=== PATIENT | male | born 1960 | race Caucasian/White ===

== ENCOUNTER 2019-12-28 10:32 | Emergency (ER) | payer MEDICARE, MEDICAID, SELFPAY ==
[2019-12-28 10:50] VITALS: BP 151/82; PULSE 92; RESP 20; TEMP 37.7; O2SAT 98
[2019-12-28 11:23] LABS: Hematocrit 50.2 % (40.0-54.0); Hemoglobin 16.9 g/dL (14.0-18.0); Mean Corpuscular HGB Conc 33.7 g/dL (32.0-36.0); Mean Corpuscular Hemoglobin 28.3 pg (27.0-31.0); Mean Corpuscular Volume 83.9 fL (78.0-102.0); Mean Platelet Volume 12.2 fl (8.7-11.0); Platelet Count Result 206 K/mm3 (150-420); Red Blood Count 5.98 M/mm3 (4.70-6.10); Red Cell Distribution Width 12.7 % (11.6-14.4); White Blood Count 15.3 K/mm3 (4.8-10.8)
--- NOTE | 2019-12-28 11:29 | ED.SKABFB ---
HPI - Skin/Abscess/Foreign Bdy General Chief complaint: Skin/Abscess/Foreign Body Stated complaint: swollen spot on L thigh, possible infection Source: patient Mode of arrival: ambulatory Limitations: no limitations History of Present Illness HPI narrative: this is a 59-year-old male presents with some lesion on the left lateral upper thigh area with an area of erythema with a central lesion the area is warm tender to touch it is swollen, patient has been afebrile started couple of days ago and has gotten worse unsure of mechanism but may be related to a scratch or insect bite. Currently no chest pain no shortness of breath no abdominal pain no dysuria. complaint: abscess/boil Onset (ago): day(s) Location: LLE Severity: moderate Severity scale (1-10): 4 Quality: aching Pain Consistency: constant Relieving factors: none Exacerbating factors: none Context: none Associated symptoms: denies other symptoms Related Data Allergies Allergy/AdvReac Type Severity Reaction Status Date / Time No Known Allergies Allergy Verified 12/28/19 11:29 Review of Systems Review of Systems: All systems reviewed & are unremarkable except as noted in HPI and below PMFSH Past Medical History Medical History Patient denies medical problems Exam Const: General: no acute distress and alert Orientation/consciousness: patient oriented x3 HENMT: Head: normal to inspection Eyes: Conjunctivae: conjunctivae normal Pupils: Equal, round and reactive pupils present Neck: Neck: normal visual inspection Chest: Chest palpation & inspection: normal inspection of the chest Resp: Effort & Inspection: normal respiratory effort Cardio: Rate: regular rate Rhythm: regular rhythm GI: Auscultation: normal bowel sounds Skin: General skin exam: normal color Wounds: no wounds Other: has some an area left lateral thigh approximately 5cm in diameter that is warm and tender to touch mildly swollen with a central lesion with currently no discharge Neuro: General: patient oriented x3, moves all extremities, no meningeal signs and no focal motor deficits Extrem: General: normal to inspection Psych: Mental Status: mental status grossly normal Course Course Emergency Course: patient started on IV ceftriaxone and did inform patient of his white count elevated and that we obtain blood cultures. Discussed with the patient's blood sugars being elevated patient is currently a diabetic but was reluctant to start his metformin, reiterated that it is important that he control his blood sugars and and he said that when he goes home whole restart his metformin. MDM - Skin/Abscess/Foreign Bdy Lab Data Result diagrams: 12/28/19 11:20 12/28/19 11:20 Labs: Lab Results 12/28/19 12/28/19 Range/Units 11:20 11:20 WBC 15.3 H (4.8-10.8) K/mm3 RBC 5.98 (4.70-6.10) M/mm3 Hgb 16.9 (14.0-18.0) g/dL Hct 50.2 (40.0-54.0) % MCV 83.9 (78.0-102.0) fL MCH 28.3 (27.0-31.0) pg MCHC 33.7 (32.0-36.0) g/dL RDW 12.7 (11.6-14.4) % Plt Count 206 (150-420) K/mm3 MPV 12.2 H (8.7-11.0) fl Sodium Pending Potassium Pending Chloride Pending Carbon Dioxide Pending Anion Gap Pending BUN Pending Creatinine Pending Estim Creat Clear Calc Pending Estimated GFR Pending Glucose Pending Calculated Osmolality Pending Calcium Pending Total Bilirubin Pending AST Pending ALT Pending Alkaline Phosphatase Pending Total Protein Pending Albumin Pending Critical Care Time Critical Care Time Critical Care Time: No Discharge Plan Discharge Clinical Impression: Cellulitis Qualifiers: Site of cellulitis: extremity Site of cellulitis of extremity: lower extremity Laterality: left Qualified Code(s): L03.116 - Cellulitis of left lower limb Abscess of skin or subcutaneous tissue Qualifier
[2019-12-28 11:39] LABS: Alanine Aminotransferase 16 U/L (16-63); Albumin Level 3.7 g/dL (3.4-5.0); Alkaline Phosphatase 74 U/L (46-116); Anion Gap 12 mmol/L (8-16); Aspartate Amino Transferase 11 U/L (15-37); Bilirubin,Total 1.1 mg/dL (0.00-1.00); Blood Urea Nitrogen 14 mg/dL (7-18); Calcium 9.7 mg/dL (8.5-10.1); Carbon Dioxide 23 mmol/L (21-32); Chloride 100 mmol/L (98-108); Estimated Glomerular Filt Rate > 60; Glucose 316 mg/dL (70-99); Osmolality Calculated 292 mOsm/kg (285-295); Sodium 135 mmol/L (136-145)
[2019-12-28 12:05] VITALS: BP 158/87; PULSE 87; RESP 20; TEMP 37.7; O2SAT 97
[2019-12-28] MEDS: TETANUS,DIPHTHERIA,AC PERTUSSIS ADULT 0.5 ML (ADACEL) IM (12:07)
== END 2019-12-28 12:09 | disposition home or self-care (01) ==
PROVIDERS: Emergency Provider Emergency Medicine; PCP Family Medicine
DX: L03.116 Cellulitis of left lower limb (principal); L02.416 Cutaneous abscess of left lower limb
CPT/HCPCS: 36415; 80053; 85027; 87040; 90471; 90715; 96365; 99283; 99284; J0696

== ENCOUNTER 2024-01-29 07:00 | Outpatient (CLI) | payer OTHER, SELFPAY ==
--- NOTE | ~2024-01-29 | NM_ITS ---
EXAMINATION: NM hepatobiliary w pharm DATE: 01/29/2024 09:51 INDICATION: Right upper quadrant abdominal pain. COMPARISON: None. TECHNIQUE: 6.0 mCi Tc-99m mebrofenin (Choletec) was administered intravenously. Scintigraphic images of the abdomen were obtained for one hour. Then, 2.0 mcg sincalide (Kinevac) IV was administered, an d imaging was continued for 30 minutes. FINDINGS: There is normal clearance of radiotracer from the blood pool. There is homogeneous tracer u ptake by the liver. Activity progresses to the bowel and gallbladder. Gallbladder ejection fraction (GBEF) was 33%. Note that most patients with gallbladder dysfunction have GBEF < 35%, which overlaps with the broad normal range of 10-90%. IMPRESSION: 1. Gallbladder ejection fraction in the lower range of normal. Note that this value overlaps with th e range of values that may be seen with gallbladder dysfunction and/or chronic cholecystitis if there is appropriate clinical correlation. Reviewed, dictated and finalized at location A. IMPRESSION: 1. Gallbladder ejection fraction in the lower range of normal. Note that this value overlaps with the range of values that may be seen with gallbladder dysfu nction and/or chronic cholecystitis if there is appropriate clinical correlatio nAisha
== END 2024-01-29 07:01 | disposition home or self-care (01) ==
LOC: CHSIMG 07:02
PROVIDERS: PCP Family Medicine; Visit Provider Family Medicine
DX: R10.11 Right upper quadrant pain (principal)
CPT/HCPCS: 78227; A9537; J2805

== ENCOUNTER 2024-06-20 08:09 | Outpatient (CLI) | payer OTHER, SELFPAY ==
--- NOTE | ~2024-06-20 | MR_ITS ---
EXAMINATION: MRA abdomen wo/w con DATE: 06/20/2024 09:04 INDICATION: Abdominal pain, weight loss and pain with eating TECHNIQUE: Magnetic resonance angiography (MRA) of the abdomen was performed without and with 20 mL M ultihance intravenous contrast. Sequences included axial and coronal 2-D FIESTA, 3-D phase contrast a t the level renal arteries and pre contrast and two sequential coronal postcontrast FSPGR from which rotating maximum intensity projection reconstructions were performed. COMPARISON: None. FINDINGS: Heart size normal. No pericardial or pleural effusion. Status post cholecystectomy with focal metalli c artifact associated with cholecystectomy clips at the gallbladder fossa. Liver, pancreas, bilateral adrenal glands and kidneys are normal. Multiple low signal intensity calcified granulomata in the sp david. No pathologically enlarged abdominal lymphadenopathy. Mild lumbar spondylosis. No abnormally en hancing bone lesions. Abdominal aorta is normal in caliber. There is some atherosclerotic plaque without hemodynamically si gnificant stenosis along the infrarenal aorta. No aneurysm, dissection or hemodynamically significant stenosis. The bilateral common iliac arteries are normal in caliber but with irregular margins sugge sting combination of atherosclerotic plaque with possible ulcerated plaque or penetrating atheroscler osis ulcers along the right common iliac artery. There is a mild <50% stenosis at the proximal celiac axis. No significant stenosis along the superior mesenteric artery. The inferior mesenteric artery i s not identified and is likely occluded. There are paired left and right renal arteries with common o rigin of the right renal arteries. IMPRESSION: 1. 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 2. Ulcerated plaque versus penetrating atherosclerotic ulcers along the normal caliber right common i liac artery. Reviewed, dictated and finalized at location A. IT REPRESENTATIVE IMPRESSION: 1. 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 2. Ulcerated plaque versus penetrating atherosclerotic ulcers along the normal caliber right common iliac artery.
--- OUTSIDE RECORDS SUMMARY | 2024-06-20 08:15 | XMS_ITS ---
Author Organization Unknown Address [address] [place] [phone] Phone Care Team Providers Care General Farmer Name Role Phone ALEX WHITNEY B Attending Unavailable LELIA Lacy Primary Unavailable Immunization Immunization Date Status Additional Notes Code Code System Tdap 12/28/2019 Completed 115 CVX Results BUN/CREAT - Collect Date/Demetrio e: 09/08/2023 09:48 [facility] ID: [id number] [address] [place] [address], [phone] LOINC: 3097-3 Test Value Unit Reference Range Code Code System Flag BUN 12 mg/dL L=7 H=20 3094-0 LOINC CREATININE 0.90 mg/dL L=0.66 H=1.25 2160-0 LOINC AGE 63 97340-4 LOINC eGFR NON-AFR 90 ml/min eGFR AFR AMER 109 ml/min CT ABD/PEL W/ CONTRAST - Com pleted: 09/08/2023 11:26 LOINC: 23400-8 EXAM DESCRIPTION: CT CHEST/LUNG W/ CONTRAST; CT ABD/PEL W/ CONTRAST REASON FOR STUDY: COLON MASS; {REASON-CT ABD/PELVIS COLON MASS Mass within the colon on colonoscopy last week. Patient reports diarrhea for 6 weeks. TECHNIQUE: CT scan of the chest, abdomen, and pelvis performed with intravenous and without oral contrast using helical scanning technique with dynamic intravenous contrast injection. Reconstructed coronal and sagittal MPR images reviewed. All images stored on PACS. Automated exposure control was used as a dose optimization technique for this examination. CONTRAST TYPE/DOSE: 100 mL Isovue 370 injected via right antecubital COMPARISON: None FINDINGS: CHEST LUNGS: There is moderate pulmonary emphysema. There is some minimal pleuroparenchymal scarring within the apices. 4 mm nodule lateral right apex image 25. 7 mm subpleural nodular opacity posterior right apex image 25. Mixed attenuation nodule in the superior segment of the right lower lobe on image 48. Ground-glass component measures 1.5 cm with 3 mm solid-appearing nodular components as well. Adjacent 4 mm ground-glass nodule superior segment right lower lobe image 51. Juxta fissural nodule on the left on image number 52 measures 8 mm, likely a lymph node. There are a few scattered calcified. There is a 4.5 mm nodule in the juxtapleural left lower lobe on image 84. PLEURA: No effusion. No pneumothorax. MEDIASTINUM/SAVITA: The thyroid gland is mildly heterogeneous. Bilateral thyroid nodules are noted, the largest measuring 1.8 cm. These can be further evaluated with thyroid ultrasound. There are paratracheal nodes in the right posterolateral paratracheal space in the superior mediastinum measuring up to 8 mm short axis. There are a few subcarinal nodes, the largest measuring 9 mm short axis. Subcentimeter bilateral hilar nodes are noted. The esophagus is unremarkable. There are a few retrocrural lymph nodes, measuring up to 6 mm short axis on image 112. HEART: The heart is within normal limits in size, without pericardial effusion. Calcification of the mitral annulus. There are coronary artery calcifications. VASCULATURE CHEST: Atherosclerotic calcification of the thoracic aorta, which is borderline enlarged measuring 3.9 cm at the level of the main pulmonary trunk. No central embolus on this non angiographic study. AXILLA: There are a few scattered axillary lymph nodes, the largest nodes do maintain fatty savita. CHEST WALL: There is gynecomastia. HARDWARE/LINES/TUBES: None. MUSCULOSKELETAL CHEST: There is thoracic spondylosis and multilevel degenerative disc disease. Mild scoliotic curvature. ABDOMEN/PELVIS LIVER: The liver is normal in size. No suspicious hepatic lesion. GALLBLADDER: No calcified stones or inflammatory process. BILE DUCTS: No intrahepatic or extrahepatic ductal dilatation. SPLEEN: Normal size. No focal lesions. PANCREAS: No identified cystic or solid masses. No significant calcifications. No adjacent inflammation or peripancreatic fluid collections. Pancreatic duct not dilated. ADRENALS: Mild nodular thickening of the left adrenal gland noted. KIDNEYS/URINARY TRACT: The kidneys enhance symmetrically. There is no suspicious cystic or solid mass. There is no hydronephrosis or hydroureter. No obstructing urolithiasis. The urinary bladder is unremarkable. There is mass effect upon the base of the bladder by an enlarged prostate. Portions of the bladder are partially obscured by artifact from left hip arthroplasty. GI: The stomach is partially decompressed, accentuating wall thickness. Small bowel loops are within normal limits in caliber. There is no small bowel obstruction. The appendix is normal. There is mild increased stool burden within the colon. There is diverticulosis, without diverticulitis. Within the mid sigmoid colon, there is mass demonstrated, measuring approximately 6 cm in length, best appreciated on axial images 166- 180. Presumably this corresponds to the mass on recent colonoscopy. There are several subcentimeter short axis dimension nodes in the adjacent mesentery. PERITONEUM: There is no free intraperitoneal air. There is no free fluid. There are a few scattered lymph nodes at the jean-claude hepatis, including a mildly enlarged 1.2 cm short axis node on image 109. There are prominent portacaval nodes, measuring 1 cm short axis. RETROPERITONEUM: There are scattered subcentimeter retroperitoneal nodes. There are scattered external iliac chain nodes, the largest is on the left measuring 1 cm short axis on image 182. REPRODUCTIVE: There is heterogeneity of the prostate, with mass effect upon the base of the bladder. Correlate with PSA. VASCULATURE ABDOMEN: The abdominal aorta is atherosclerotic, without aneurysm. MUSCULOSKELETAL ABDOMEN PELVIS: There is lumbar spondylosis and degenerative disc disease noted. 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 Left hip arthroplasty component is in place. OTHER: No significant abnormality. IMPRESSION: 1. Irregular mass within the sigmoid colon, presumably corresponding to the mass discovered at colonoscopy last week. Correlate with colonoscopy report. Mass is at least 6 cm in longitudinal dimension. There are several subcentimeter short axis dimension lymph nodes in the pericolonic fat and in the adjacent mesentery. 2. Mildly enlarged left external iliac chain node and mildly enlarged jean-claude hepatis and portacaval nodes, indeterminate. 3. Prostatomegaly with heterogeneity of the parenchyma and mass effect upon the base of the bladder. Correlate with PSA. 4. Hepatic steatosis. 5. Pulmonary nodules, including a mixed attenuation 1.5 cm lesion in the superior segment of the right lower lobe. Three-month follow-up CT is recommended. 6. Subcentimeter mediastinal nodes, indeterminate. Attention on follow-up necessary. 7. Bilateral thyroid nodularity. Thyroid ultrasound can be utilized for further evaluation. 8. Borderline enlargement of the ascending thoracic aorta measuring 3.9 cm. PET-CT can be utilized for further evaluation as warranted clinically. THIS IS AN ELECTRONICALLY VERIFIED FINAL REPORT 09/11/2023 12:15 PM - Electronically signed by Aidee Harrell M.D. TW: MADHAVI Report ID: [id number] Reading Location: [id number] CT CHEST/LUNG W/ CONTRAST - Completed: 09/08/2023 11:26 LOINC: EXAM DESCRIPTION: CT CHEST/LUNG W/ CONTRAST; CT ABD/PEL W/ CONTRAST REASON FOR STUDY: COLON MASS; {REASON-CT ABD/PELVIS COLON MASS Mass within the colon on colonoscopy last week. Patient reports diarrhea for 6 weeks. TECHNIQUE: CT scan of the chest, abdomen, and pelvis performed with intravenous and without oral contrast using helical scanning technique with dynamic intravenous contrast injection. Reconstructed coronal and sagittal MPR images reviewed. All images stored on PACS. Automated exposure control was used as a dose optimization technique for this examination. CONTRAST TYPE/DOSE: 100 mL Isovue 370 injected via right antecubital COMPARISON: None FINDINGS: CHEST LUNGS: There is moderate pulmonary emphysema. There is some minimal pleuroparenchymal scarring within the apices. 4 mm nodule lateral right apex image 25. 7 mm subpleural nodular opacity posterior right apex image 25. Mixed attenuation nodule in the superior segment of the right lower lobe on image 48. Ground-glass component measures 1.5 cm with 3 mm solid-appearing nodular components as well. Adjacent 4 mm ground-glass nodule superior segment right lower lobe image 51. Juxta fissural nodule on the left on image number 52 measures 8 mm, likely a lymph node. There are a few scattered calcified. There is a 4.5 mm nodule in the juxtapleural left lower lobe on image 84. PLEURA: No effusion. No pneumothorax. MEDIASTINUM/SAVITA: The thyroid gland is mildly heterogeneous. Bilateral thyroid nodules are noted, the largest measuring 1.8 cm. These can be further evaluated with thyroid ultrasound. There are paratracheal nodes in the right posterolateral paratracheal space in the superior mediastinum measuring up to 8 mm short axis. There are a few subcarinal nodes, the largest measuring 9 mm short axis. Subcentimeter bilateral hilar nodes are noted. The esophagus is unremarkable. There are a few retrocrural lymph nodes, measuring up to 6 mm short axis on image 112. HEART: The heart is within normal limits in size, without pericardial effusion. Calcification of the mitral annulus. There are coronary artery calcifications. VASCULATURE CHEST: Atherosclerotic calcification of the thoracic aorta, which is borderline enlarged measuring 3.9 cm at the level of the main pulmonary trunk. No central embolus on this non angiographic study. AXILLA: There are a few scattered axillary lymph nodes, the largest nodes do maintain fatty savita. CHEST WALL: There is gynecomastia. HARDWARE/LINES/TUBES: None. MUSCULOSKELETAL CHEST: There is thoracic spondylosis and multilevel degenerative disc disease. Mild scoliotic curvature. ABDOMEN/PELVIS LIVER: The liver is normal in size. No suspicious hepatic lesion. GALLBLADDER: No calcified stones or inflammatory process. BILE DUCTS: No intrahepatic or extrahepatic ductal dilatation. SPLEEN: Normal size. No focal lesions. PANCREAS: No identified cystic or solid masses. No significant calcifications. No adjacent inflammation or peripancreatic fluid collections. Pancreatic duct not dilated. ADRENALS: Mild nodular thickening of the left adrenal gland noted. KIDNEYS/URINARY TRACT: The kidneys enhance symmetrically. There is no suspicious cystic or solid mass. There is no hydronephrosis or hydroureter. No obstructing urolithiasis. The urinary bladder is unremarkable. There is mass effect upon the base of the bladder by an enlarged prostate. Portions of the bladder are partially obscured by artifact from left hip arthroplasty. GI: The stomach is partially decompressed, accentuating wall thickness. Small bowel loops are within normal limits in caliber. There is no small bowel obstruction. The appendix is normal. There is mild increased stool burden within the colon. There is diverticulosis, without diverticulitis. Within the mid sigmoid colon, there is mass demonstrated, measuring approximately 6 cm in length, best appreciated on axial images 166- 180. Presumably this corresponds to the mass on recent colonoscopy. There are several subcentimeter short axis dimension nodes in the adjacent mesentery. PERITONEUM: There is no free intraperitoneal air. There is no free fluid. There are a few scattered lymph nodes at the jean-claude hepatis, including a mildly enlarged 1.2 cm short axis node on image 109. There are prominent portacaval nodes, measuring 1 cm short axis. RETROPERITONEUM: There are scattered subcentimeter retroperitoneal nodes. There are scattered external iliac chain nodes, the largest is on the left measuring 1 cm short axis on image 182. REPRODUCTIVE: There is heterogeneity of the prostate, with mass effect upon the base of the bladder. Correlate with PSA. VASCULATURE ABDOMEN: The abdominal aorta is atherosclerotic, without aneurysm. MUSCULOSKELETAL ABDOMEN PELVIS: There is lumbar spondylosis and degenerative disc disease noted. 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 Left hip arthroplasty component is in place. OTHER: No significant abnormality. IMPRESSION: 1. Irregular mass within the sigmoid colon, presumably corresponding to the mass discovered at colonoscopy last week. Correlate with colonoscopy report. Mass is at least 6 cm in longitudinal dimension. There are several subcentimeter short axis dimension lymph nodes in the pericolonic fat and in the adjacent mesentery. 2. Mildly enlarged left external iliac chain node and mildly enlarged jean-claude hepatis and portacaval nodes, indeterminate. 3. Prostatomegaly with heterogeneity of the parenchyma and mass effect upon the base of the bladder. Correlate with PSA. 4. Hepatic steatosis. 5. Pulmonary nodules, including a mixed attenuation 1.5 cm lesion in the superior segment of the right lower lobe. Three-month follow-up CT is recommended. 6. Subcentimeter mediastinal nodes, indeterminate. Attention on follow-up necessary. 7. Bilateral thyroid nodularity. Thyroid ultrasound can be utilized for further evaluation. 8. Borderline enlargement of the ascending thoracic aorta measuring 3.9 cm. PET-CT can be utilized for further evaluation as warranted clinically. THIS IS AN ELECTRONICALLY VERIFIED FINAL REPORT 09/11/2023 12:15 PM - Electronically signed by Aidee Harrell M.D. TW: MADHAVI Report ID: [id number] Reading Location: [id number] Social History Type Status Start Date End Date Code Code Syst em Smoking History Unknown if ever smoked [id number] Sex Male Assessment You had the following problems:CONTACT WITH AND (SUSPECTED) EXPOSURE TO OTHER VIRAL COMMUNICABLE DISEASES Hospital Discharge Instructions Should you have any questions prior to discharge, please contact a member of your healthcare team. If you have left the hospital and have any questions, please contact your primary care physician. Reason For Referral No Data Found Problems Problem Start Date Resolved Date Status Code Code System CONTACT WITH AND (SUSPECTED) EXPOSURE TO OTHER VIRAL COMMUNICABLE DISEASES active 813180119 SNOMED -CT Allergies and Adverse Reactions Allergy Substance Reaction Severity Start Date Concern Status Co de Code System CLINDAMYCIN Rash (SNOMED-CT: 972641315), Redness (SNOMED-CT: 031162681) Active 3792 RxNorm Plan of Treatment No Data Found Encounters Encounter Diagnosis Start Date Code Code Sys tem Other specified diseases of intestine 09/08/2023 SNOMED-CT Personal Care Team Section Performer Name Performer Role Active Date Inactive HERLINDA Bryan PCP - Primary care physician 2021-05-25 2023-08-25 Imaging Narrative Notes
--- OUTSIDE RECORDS SUMMARY | 2024-06-20 08:15 | XMS_ITS | Clinical Summary ---
Author Organization [facility] Address [address] [place] [address] Care Team Providers Care Digital Production Manager Name Role Phone Joselito Faust MD Primary Care Provider [phone] Allergies No known active allergies Medications metFORMIN 500 MG tablet Take 500 mg by mouth 3 (three) times daily with meals. Active glimepiride 2 MG tablet Take 2 mg by mouth every morning before breakfast. Active hydroCHLOROthia zide 12.5 MG capsule Take 12.5 mg by mouth every morning. Active lisinopril 20 MG tablet Take 20 mg by mouth daily. Active Active Problems Problem Noted Date Diagnosed Date COVID-19 03/23/2020 Immunizations Name Administration Dates Next Due Fluzone 6 Months+ Quad (0.5 mL Prefilled Syringe ) 03/27/2020 Pneumococcal (Pneumovax 23) 03/27/2020 Family History Medical History Relation Comments None Father None Mother Relation Status Comments Father Mother Social History Tobacco Use Types Packs/Day Years Used Date Smoking Tobacco: Former Cigarettes 1 25 Alcohol Use Standard Drinks/Week Comments Yes 0 (1 standard drink = 0.6 oz pur e alcohol) AUDIT-C Answer Date Recorded Q1: How often do you have a drink containing alc ohol? Monthly or less 03/23/2020 Average Number of Drinks Not on file 020 Frequency of Binge Drinking Not on file 01/2020 Sex and Gender Information Value Date Recorded Sex Assigned at Not on file Legal Sex Male 8:54 PM CDT Gender Identity Not on file Sexual Orientation Not on file Last Filed Vital Signs Vital Sign Reading Time Taken Comments Blood Pressure 136/73 03/27/2020 5:43 AM AUTOMOTIVE PRODUCT SPECIALIST Pulse 64 03/27/2020 5:43 AM AUTOMOTIVE PRODUCT SPECIALIST Temperature 36.5 C (97.7 F) 03/27/2020 5:43 AM AUTOMOTIVE PRODUCT SPECIALIST Respiratory Rate 18 03/27/2020 5:43 AM AUTOMOTIVE PRODUCT SPECIALIST Oxygen Saturation 94% 03/27/2020 11: 37 AM AUTOMOTIVE PRODUCT SPECIALIST Inhaled Oxygen Concentration - - Weight 129.5 kg (285 lb 9.6 oz) 03/23/2020 7:00 AM AUTOMOTIVE PRODUCT SPECIALIST Height 185.4 cm (6' 1 ) 03/23/2020 7:00 AM AUTOMOTIVE PRODUCT SPECIALIST Body Mass Index 37.68 03/23/2020 7:00 AM AUTOMOTIVE PRODUCT SPECIALIST Plan of Treatment Health Maintenance Due Date Last Done Comments Colorectal Cancer Screening Colonoscopy (10 Years) 1958 PHQ-2 (Physician [place]) 1970 Hepatitis C 1976 DTaP, Tdap and Td Vaccines ( 1 - Tdap) 1977 Zoster Vaccines (1 of 2) 2008 Annual Medicare Wellness Visit 2023 Pneumococcal Vaccine: 65+ Ye ars (2 of 2 - PCV) 2023 03/27/2020 COVID-19 Vaccine (1 - 2023-2 5 season) 2024 Influenza Adult (#1) 2024 03/27/2020 PHQ-2 (Physician [place]) 2024 RSV Immunization or 60+ Years (1 - 1-dose 75+ series) 2033 Meningococcal B Vaccine Aged Out No l onger eligible based on patient's age to complete this topic Meningococcal Vaccine Aged Out No ciara francesco eligible based on patient's age to complete this topic RSV Immunizations Under 20 Months Aged Out No longer eligible based on patient's age to complete this topic Insurance MEDICARE MEDICAID [employer] Advance Directives * Full Code (Latest Code Status on File) Date Activated Date Inactivated Comments 03/23/2020 6:10 AM 03/27/2020 4:17 PM Care Teams Digital Production Manager Relationship Specialty Start Date End Date Joselito Faust MD PCP - General FAMILY PRACTICE 03/27/20
--- OUTSIDE RECORDS SUMMARY | 2024-06-20 08:15 | XMS_ITS | Data Portability ---
Author Organization [facility], [address] [facility] ([place]) Address [address] [place] [address] Care Team Providers Care Sand Buffer Name Role Phone HERLINDA HERBERT Primary Care Provider AMARILYS SHEPPARD Biometrician Assessment Encounter Date Assessment Date Assessment LastModified by Organization Details LastModified Time 02/02/2024 02/02/2024 ASSESSMENT: Biliary dyskinesia. PLAN: We discussed watchful waiting and surgical intervention. I have recommended a laparoscopic cholecystectomy with intraoperative cholangiogram. He is aware that there is roughly an 80% chance that cholecystectomy for a diagnosis of biliary dyskinesia will be effective in symptomatic resolution. The procedure, risks, benefits and alternatives were discussed in detail with the patient. They are aware the risks include, but are not limited to, cardiopulmonary events, cerebrovascular events, bleeding, infection, other organ injury, bile duct injury, bile leak, and need for open surgery. They expressed understanding and agreement. Thank you for this consultation and for allowing me to take part in Silvio teresa care. [email or web address] Not available 02/02/2024 22:28:20 02/28/2024 02/28/2024 HISTORY OF PRESE NT ILLNESS: Mr. Muir returns to clinic today. He is status post laparoscopic cholecystectomy with intraoperative cholangiogram on 02/09/2024 for biliary dyskinesia. At the time of surgery, we found biliary sludge. He has continued to have the same pain he has had for months. He states it is no better after surgery. It is not related to eating. PHYSICAL EXAM: CONST: Alert and oriented x 3. No acute distress. EYES: No icterus. ENT: Oral mucosa pink and moist. RESP: Breathing appears normal. No use of accessory muscles. GI: Abdomen soft, nondistended. Tender to palpation in the right upper quadrant. Incisions clean, dry and intact. MSK: Extremities without edema. SKIN: No jaundice. No obvious skin lesions seen on exposed areas. Incisions are clean dry and intact without infection. PSYCH: No disturbance to affect. NEURO: No speech difficulty. Steady gait. Reviewed pertinent diagnostic tests, lab work, and imaging. These were reviewed with the patient. ASSESSMENT: Persistent pain status post laparoscopic cholecystectomy with intraoperative cholangiogram for biliary dyskinesia and biliary sludge. PLAN: Given the persistence of the patient s pain, he is notably frustrated. He asked for additional pain medicine. I explained to him that I do not manage chronic pain medication and he would need to contact his primary care physician. We will schedule him for an appointment with Gastroenterology to rule out additional causes, such as sphincter of Oddi dysfunction. He expressed understanding and agreement. [email or web address] Not available 02/28/2024 17:00:57 02/28/2024 02/28/2024 Silvio has some persistent worsening symptoms despite his cholecystectomy. It is a little hard to say what his symptoms are from. He and his have mentioned sphincter of Oddi syndrome or dysfunction, which is kind of a hard diagnosis to make. Dr. Ford is pretty reassured by his intraoperative cholangiogram, plus he had some of these symptoms before my surgery even for the colon cancer. All things considered, we will see what Dr. Ford has to say. It might be worth considering an MRCP; however, on review of the CT scan images, they are pretty unimpressive. They will continue to work on his stool softener regimen. I will follow up with him in the near future. Also, get a KUB today. [email or web address] Not available 03/04/2024 16:58:08 03/12/2024 03/12/2024 Spoke to patient at length about sphincter of Oddi dysfunction this potential diagnosis has been discussed with his other providers. I did tell him it does appear that this potentially could be etiology for his discomfort as far as what I know about this disorder. I did tell him optimally however you want to get sphincter of Oddi manometry it is my understanding no one in [place] does this test they would need to go to [facility]. Does appear the patient is in a lot of discomfort and he told me he is going to go to ER for pain control after he sees me today. I do not feel an EGD would be of any benefit for him. I told the patient I would touch base with Dr. Sheppard about where to go from here, potentially doing an ERCP with sphincterotomy even without doing the manometry procedure. He appeared to be perfectly fine with this plan at this point. [email or web address] Not available 03/12/2024 11:08:05 03/27/2024 03/27/2024 Just in case thi s is something intestinal we will try him on an anticholinergic in the form of dicyclomine, we will need to refer him to [facility] to get a second opinion on this. I told the patient I will refill the tramadol up until he can get into be seen in [place] [facility] to help him with the discomfort. He will let me know when he needs a refill on the tramadol. He seemed fine with this plan at this point. [email or web address] Not available 03/27/2024 11:39:41 Plan of Treatment Reminders Order Date Submit Date Provider Last Modified By Organization Details Last Modified Time Details Appointments None recorded. Lab None recorded. Referral None recorded. Procedures None recorded. Surgeries None recorded. Imaging None recorded. Medication Orders dicyclomine 20 mg tablet 2023 024 KALEN [facility] [address] [place], [address], 11:42:04 Patient TargetsNo targets recorded. Patient InstructionsNo instructions recorded. Reason for Referral None Reported. Results Created Date Observation Date Name Description Value Unit Range Abnormal Flag Note LastModifiedBy Organization Detail LastModifiedTime 01/19/20 24 01/19/2024 CBC w/ auto diff CBC with differential Not Available [facility] [address] [place] [address], [id number], 01/19/2024 13:59:20 01/19/20 24 01/19/2024 CBC w/ auto diff WBC 9.6 K/uL 4.8- 10.8 Not Available [facility] [address] [place] [address], [id number], 01/19/2024 13:59:20 01/19/20 24 01/19/2024 CBC w/ auto diff RBC 6.15 M/uL 4.70-6 .10 high Not Available [facility] [address] [place] [address], [id number], 01/19/2024 13:59:20 01/19/20 24 01/19/2024 CBC w/ auto diff HGB 16.8 g/dL 14.0-1 8.0 Not Available [facility] [address] [place] [address], [id number], 01/19/2024 13:59:20 01/19/20 24 01/19/2024 CBC w/ auto diff HCT 51.6 % 42.0-5 2.0 Not Available [facility] [address] [place] [address], [id number], 01/19/2024 13:59:20 01/19/20 24 01/19/2024 CBC w/ auto diff MCV 83.9 fL 80.0-9 4.0 Not Available [facility] [address] [place] [address], [id number], 01/19/2024 13:59:20 01/19/20 24 01/19/2024 CBC w/ auto diff MCH 27.3 pg 27.0- 31.0 Not Available [facility] [address] [place] [address], [id number], 01/19/2024 13:59:20 01/19/20 24 01/19/2024 CBC w/ auto diff MCHC 32.6 g/dL 32.0-3 6.0 Not Available [facility] [address] [place] [address], [id number], 01/19/2024 13:59:20 01/19/20 24 01/19/2024 CBC w/ auto diff RDW-SD 41.3 fL 35.1 - 46.3 Not Available [facility] [address] [place] [address], [id number], 01/19/2024 13:59:20 01/19/20 24 01/19/2024 CBC w/ auto diff plt 213 K/uL 130-40 0 Not Available [facility] [address] [place] [address], [address], 01/19/2024 13:59:20 01/19/20 24 01/19/2024 CBC w/ auto diff MPV 11.8 fL 7.5- 11.8 Not Available [facility] [address] [place] [address], 613[address], 01/19/2024 13:59:20 01/19/20 24 01/19/2024 CBC w/ auto diff partha% 60.8 % not estab Not Available [facility] [address] [place] [address], 56[address], 01/19/2024 13:59:20 01/19/20 24 01/19/2024 CBC w/ auto diff lym% 26.3 % not estab Not Available [facility] [address] [place] [address], 15[address], 01/19/2024 13:59:20 01/19/20 24 01/19/2024 CBC w/ auto diff mono% 8.5 % not estab Not Available [facility] [address] [place] [address], [address], 01/19/2024 13:59:20 01/19/20 24 01/19/2024 CBC w/ auto diff eos% 3.1 % not estab Not Available [facility] [address] [place] [address], [id number], 01/19/2024 13:59:20 01/19/20 24 01/19/2024 CBC w/ auto diff baso% 1.2 % not estab Not Available [facility] [address] [place] [address], [address], 01/19/2024 13:59:20 01/19/20 24 01/19/2024 CBC w/ auto diff abs partha 5.8 K/uL 1.5-7. 5 Not Available [facility] [address] [place] [address], [id number], 01/19/2024 13:59:20 01/19/20 24 01/19/2024 CBC w/ auto diff abs lym 2.5 K/uL 1.2-3. 4 Not Available [facility] [address] [place] [address], [id number], 01/19/2024 13:59:20 01/19/20 24 01/19/2024 CBC w/ auto diff abs mono 0.8 K/uL 0.1-1. 0 Not Available [facility] [address] [place] [address], [id number], 01/19/2024 13:59:20 01/19/20 24 01/19/2024 CBC w/ auto diff abs eos 0.3 K/uL 0.0-0. 7 Not Available [facility] [address] [place] [address], 53071, 01/19/2024 13:59:20 01/19/20 24 01/19/2024 CBC w/ auto diff abs baso 0.1 K/uL 0.0-0. 2 Not Available [facility] [address] [place] [address], 266[address], 01/19/2024 13:59:20 01/19/20 24 01/19/2024 CBC w/ auto diff imm. gran % 0.1 % 0-5 Not Available [facility] [address] [place] [address], [id number], 01/19/2024 13:59:20 01/19/20 24 01/19/2024 CBC w/ auto diff NRBC % 0.0 % 0.0-0. 2 Not Available [facility] [address] [place] [address], [id number], 01/19/2024 13:59:20 01/19/20 24 01/19/2024 hemog lobin A1c + avera ge gluco se, QN, blood hemoglobin A1C Not Available [facility] [address] [place] [address], 165[address], 01/19/2024 14:23:01 01/19/20 24 01/19/2024 hemog lobin A1c + avera ge gluco se, QN, blood HGB A1C 8.2 %_A1C 4.3 - 5.6 high Not Available [facility] [address] [place] [address], 23042, 01/19/2024 14:23:01 01/19/20 24 01/19/2024 hemog lobin A1c + avera ge gluco se, QN, blood estimated average glucose 189 mg/dL Not Available [facility] [address] [place] [address], [id number], 01/19/2024 14:23:01 01/19/20 24 01/19/2024 CMP, serum or plasm a comp. met. panel Not Available [facility] [address] [place] [address], 02607, 01/19/2024 14:23:04 01/19/20 24 01/19/2024 CMP, serum or plasm a sodium 136 mmol/ L 136-14 6 Not Available [facility] [address] [place] [address], [id number], 01/19/2024 14:23:04 01/19/20 24 01/19/2024 CMP, serum or plasm a potassium 4.4 mmol/ L 3.5-5. 1 Not Available [facility] [address] [place] [address], 92894, 01/19/2024 14:23:04 01/19/20 24 01/19/2024 CMP, serum or plasm a chloride 105 mmol/ L 98-110 Not Available [facility] [address] [place] [address], 14595, 01/19/2024 14:23:04 01/19/20 24 01/19/2024 CMP, serum or plasm a CO2 23 mEq/L 20-32 Not Available [facility] [address] [place] [address], 30865, 01/19/2024 14:23:04 01/19/20 24 01/19/2024 CMP, serum or plasm a anion gap 12 mmol/ L 10-22 Not Available [facility] [address] [place] [address], 71673, 01/19/2024 14:23:04 01/19/20 24 01/19/2024 CMP, serum or plasm a glucose 167 mg/dL 70-100 high Not Available [facility] [address] [place] [address], 42084, 01/19/2024 14:23:04 01/19/20 24 01/19/2024 CMP, serum or plasm a calcium 10.0 mg/dL 8.4-10 .4 Not Available [facility] [address] [place] [address], 02409, 01/19/2024 14:23:04 01/19/20 24 01/19/2024 CMP, serum or plasm a total protein 7.5 g/dL 6.4-8. 3 Not Available [facility] [address] [place] [address], [id number], 01/19/2024 14:23:04 01/19/20 24 01/19/2024 CMP, serum or plasm a albumin 4.6 g/dL 3.5-5. 3 Not Available [facility] [address] [place] [address], 53729, 01/19/2024 14:23:04 01/19/20 24 01/19/2024 CMP, serum or plasm a ALP 79 U/L 44 - 127 Not Available [facility] [address] [place] [address], 17259, 01/19/2024 14:23:04 01/19/20 24 01/19/2024 CMP, serum or plasm a AST (SGOT) 13 U/L 10-40 Not Available [facility] [address] [place] [address], 53206, 01/19/2024 14:23:04 01/19/20 24 01/19/2024 CMP, serum or plasm a total bilirubin 0.7 mg/dL 0.2-1. 0 Not Available [facility] [address] [place] [address], 47402, 01/19/2024 14:23:04 01/19/20 24 01/19/2024 CMP, serum or plasm a ALT (SGPT) 11 U/L 8-35 Not Available [facility] [address] [place] [address], 37668, 01/19/2024 14:23:04 01/19/20 24 01/19/2024 CMP, serum or plasm a BUN 17 mg/dL 7-21 Not Available [facility] [address] [place] [address], 18266, 01/19/2024 14:23:04 01/19/20 24 01/19/2024 CMP, serum or plasm a creatinine 1.0 mg/dL 0.7-1. 3 Not Available [facility] [address] [place] [address], 13171, 01/19/2024 14:23:04 01/19/20 24 01/19/2024 CMP, serum or plasm a GFR(non-afri can syrian) 80 Not Available [facility] [address] [place] [address], 06708, 01/19/2024 14:23:04 01/19/20 24 01/19/2024 CMP, serum or plasm a GFR() 97 (CRIME SCENE TECHNICIAN DORIS KIDNE Y DISEA SE HAS A GFR LESS THAN 60 ML/DE N/1.7 3 MM FOR A PERIO D OF THREE MONTH S OR MORE. ) Not Available [facility] [address] [place] [address], [address], 01/19/2024 14:23:04 01/19/20 24 01/19/2024 carci noemb ryoni c Ag, quant , serum or plasm a cea <2.0 NG/mL <0.5-3 .0 This test is perfo rmed on a Sieme ns Atell ica flora zer. Since there are not exist ing stand nesha refer ence units , users shoul d not make mini rison s betwe en metho ds. Not Available [facility] [address] [place] [address], 057[address], 01/19/2024 14:23:07 02/09/20 24 02/09/2024 SURGI FABRICE PATHO LOGY spf Perfo rmed at: [facility] Order ing Provi brandy: Whitney Shultz nt Name: ALFREDO MUIR #: [id number] /A ge/Ge nder: 959 (Age: 63) / M Proce dure Date: 2023 SP ECIME N(S) RECEI SHYANN * A:Gal lblad brandy, jarred cyste ctomy FI NAL PATHO LOGIC DIAGN OSIS* A. Pritesh edwards, jarred cyste ctomy : - Chron ic jarred cysti tis with jarred lithi asis EL ECTRO NICAL LY VERIF IED BY BREANNA MAYEN MD 2023 17:08 CL INICA L HISTO RY Galls tones GR OSS DESCR IPTIO N The speci men conta iner and requi sitio n have the same patie nt name. Recei shyann in forma breanna label ed A, gallb ladde r is is a 6.5 x 3.6 x 0.6 cm disru pted gallb ladde r with a metal lic clip at cysti c duct jose alberto n. The seros al surfa ce is fairbanks and rowan h, and the hepat ic bed is brown and ragge d. The gallb ladde r conta ins fairbanks-b rown small calcu tessa fragm etns admix ed with about 5 mL of visco us brown bile. The gallb ladde r mucos a is brown and the wall is up to 0.2 cm in thick ness. Repre senta tive secti ons of the speci men are submi tted as A1. The tissu e is proce ssed as forma breanna-f ixed paraf fin-e mbedd ed secti ons. ct/ END OF T Not Available [facility] Only - [facility] [address] [place], [address], 02/12/2024 18:08:55 01/22/20 24 01/22/2024 CT, abdom en + pelvi s, w/ contr ast [facility] [address] [place] [address] Teleph one [phone] Name: Silvio Muir [id number] Exam Date: 2023 Age: 63 Physic sher: MD Muñoz Brad : 1960 Examin ation: CT ABD/PE L W CT OF THE ABDOME N AND PELVIS HISTOR Y: Right- sided abdomi nal pain for one week. Previo us resect ion of colon cancer . TECHNI QUE: CT of the abdome n and pelvis was perfor med with IV contra st admini strati on. 100 ml of Isovue 370 was inject ed throug h the right antecu bital fossa withou t eviden ce of advers e reacti on. Automa kaden exposu re contro l was used to optimi ze radiat ion dose for this examin ation. COMPAR LAUREN: Outsid e CT of the chest, abdome n and pelvis 024. ABDOME N: The lung bases are clear. There are calcif ied granul omas in the left lower lobe. There is mitral annula r calcif icatio n. The liver is normal in size and contou r with no focal mass. The gallbl adder appear s normal . There is no bile duct dilata tion. The spleen appear s normal . The pancre as is negati ve. There is no adrena l mass. There is no renal mass or hydron ephros is. There is athero sclero tic diseas e of the abdomi nal aorta and its branch es withou t aneury sm format ion. There are 2 left renal arteri es. There is no retrop eriton eal lympha denopa thy. The stomac h appear s grossl y normal . PELVIS : There has been an interv al left hemico lectom y with an anasto motic suture line at the level of the upper rectum . There is mild coloni c divert iculos is withou t eviden ce of divert iculit is. There is a normal append ix. There is no small bowel dilata tion or wall thicke anabella. No acute inflam matory proces s, free fluid or fluid collec tion is seen. No perito fidelia tumor implan t is seen. There is no mesent sneha lympha denopa thy. There is no pelvic lympha denopa thy. The prosta te and bladde r are obscur ed by artifa ct from left hip orthop edic hardwa re. There is bilate ral vas defere ns calcif icatio ns sugges ting diabet es. 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 No suspic ious bone lesion is seen. IMPRES SHAVONNE: 1. Interv al left hemico lectom y. 2. There is no eviden ce of recurr ent or metast atic neopla sm in the abdome n or pelvis . 3. No acute abnorm ality is seen to accoun t for the patien t's right- sided abdomi nal pain. Electr onical ly signed in [place] crijuvenal by: TIANA Capps MD on:01/21 12:23 PM cc: Page PAGE 1 of [facility] 1 [email or web address] [facility] [address], [place], [address], 01/25/2024 11:56:33 02/28/20 24 02/28/2024 XR, abdom en, 1 view [facility] [address] [place] [address] Teleph one [phone] Name: Silvio Muir [id number] am Date: 2023 Age: 63Phys ician: MD Wanda, Toribio : 1960Ex aminat ion: XR ABDOME N/KUB1 VIEW EXAM: Abdome n fronta l views HISTOR Y: Right upper quadra nt pain radiat ing to the back. Cholec ystect rita 2 weeks ago. COMPAR LAUREN:C T of the abdome n from 01/22/20 24 FINDIN GS: Scatte red air-fi lled normal calibe r bowel loops seen. There is some air and fecal matter in the colon with mild to modera te coloni c stool burden . Surgic al clips in the right upper abdome n seen. There is degene rative disc diseas e in the lumbar spine. A left hip arthro plasty is seen. IMPRES SHAVONNE: Mild to modera te coloni c stool burden . Electr onical ly signed in [place] cri by: KINA PERALTA MD on: 4 11:08 AM cc: Page PAGE 1 of [facility] 1 KALEN [facility] [address] [place] [address], [address], 03/08/2024 13:30:10 03/12/20 24 09/25/2023 imagi ng/di agnos tic resul t No observ ation record ed. [email or web address] Not Available 07:02:51 03/19/20 24 03/18/2024 lakisha VALDESiop ancre atogr am, w/o contr ast [facility] [address] [place] [address] Teleph one Name: Silvio Muir [id number] Exam Date: 2023 Age: 63 Physic sher: MD Wanda, Toribio : 1960 Examin ation: MRI MRCP EXAM: Magnet ic Resona nce Imagin g (MRI) Abdome n (Chola ngiopa ncreat ograph y) HISTOR Y: contin ued RUQ pain despit e cholec ystect rita in septem brook. COMPAR LAUREN: CT dated 01/22/24 TECHNI QUE: MRI of the abdome n was obtain ed accord ing to MRCP protoc ol withou t the admini strati on of intrav enous gadoli nium-b ased contra st. The 3D thin sectio n MRCP images were proces sed at an non-in depend ent workst atcount includes the [facility] and maximu m intens ity projec tion images were recons tructe d and review ed for the 3D visual izatio n and evalua tion of the pancre atobil iary ductal system . FINDIN GS: Bile ducts: The extrah epatic and centra l intrah epatic bile ducts are not dilate d, measur ing 6 mm at the level of the mid common duct. Pancre as: The pancre as has normal signal intens ity withou t eviden ce of peripa ncreat ic fluid. There is mild fatty infilt ration of pancre as. A 5 mm cystic struct ure is seen in the pancre atic head (09/07) . This appear s to commun icate with the main pancre atic duct. The main pancre atic duct is not dilate d. No solid compon ents are seen. Gallbl adder: The gallbl adder is absent . Liver: The liver is normal in size. No solid lesion s are seen.. Spleen : Scatte red calcif icatio ns are seen in the spleen . Kidney s: Both kidney s appear normal in size and shape with no defini te solid lesion or hydron ephros is. Adrena ls: The left adrena l gland Is mildly thicke pablo. The right adrena l gland is normal . GI: The gastro intest inal tract includ ed in this scan shows no signif icant abnorm ality. Retrop eriton eum/Me prince y: Scatte red subcen timete r retrop eriton eal lymph nodes are presen t. Scatte red subcen timete r mesent sneha lymph nodes are presen t. No ascite s. The bilate ral lung bases are normal . The bony struct ures are unrema rkable . IMPRES SHAVONNE: 1. No defini te MR findin gs to explai n the patien t's persis tent right upper quadra nt pain. 2. 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 A follow -up pancre as cyst protoc ol MRI in 2 years is recomm ended. Electr onical ly signed in [place] cribe by: LUÍS Browning MD on:03/19/2024 8:13 AM cc: Page PAGE 1 of [facility] 1 [email or web address] [facility] [address] [place] [address], [address], 04/10/2024 18:28:23 03/21/20 24 01/29/2024 NM, hepat obili bharathi scan No observ ation record ed. [email or web address] Not Available 2023 13:41:10 Result Notes None recorded. Problems Name Problem SNOMED Code Status Onset Date Resolution Date Notes Provider Name and Address Organization Details Recorded Time Abdominal pain 74885175 Active 2023 Stacy Andino [facility] 4 14:31:15 Biliary dyskinesia 959707512 Active 2023 Anand Swanson [facility] 4 14:36:16 Generalized abdominal pain 680026936 Active 2023 Anand Swanson [facility] 4 16:15:42 Acute abdominal pain 428063988 Active 2023 Heather edwards [facility] 4 11:36:56 Pain 12685360 Active 2023 Beata Adams [facility] 4 11:08:26 Right upper quadrant pain 375038937 Active 2023 Colton Brooke APRN, SENIOR PRINCIPAL PROCESS ENGINEER [address] [place] [address], [phone] , [facility] 4 13:22:10 Abdominal discomfort 17389082 Active 2023 Colton Brooke APRN, SENIOR PRINCIPAL PROCESS ENGINEER [address] [place] [address], [phone] , [facility] 4 11:08:44 Gout 12500747 [facility] 2023 [facility] 4 09:32:40 Essential hypertension 24910229 Active 2023 [facility] 4 09:32:45 Type 2 diabetes mellitus 89017364 Active 2023 [facility] 4 09:32:52 Malignant tumor of colon 716132919 Active 2023 [facility] 4 08:55:45 Primary malignant neoplasm of sigmoid colon 84311039 Active 2023 [facility] 4 09:16:54 Malignant tumor of sigmoid colon 826654600 Active 2023 Toribio Muñoz MD [address] [place] [address], [phone] , [facility] 4 10:53:48 Problem Notes Documentation Provider Name and Address Organization Details Recorded Time [facility] Consult Note : [address] [id number], Robert L (id #[id number], : 1960) Date: 4RE: Silvio Muir, : 1960, PT ID #[id number] Weber MD, I would like to thank you for referring Silvio Wood to our practice on 02/02/2024. I have enclosed a copy of the office evaluation for your records. Once again, thank you for allowing me to participate in the care of this patient. Sincerely, Electronically Signed by: WHITNEY FORD MD Encounter Reason/Date gallbladder problem 02/02/2024 - 11:10AM - [address] [facility] ([place] Assessment/PlanASSESSMENT: Biliary dyskinesia. PLAN:We discussed watchful waiting and surgical intervention. I have recommended a laparoscopic cholecystectomy with intraoperative cholangiogram. He is aware that there is roughly an 80% chance that cholecystectomy for a diagnosis of biliary dyskinesia will be effective in symptomatic resolution. The procedure, risks, benefits and alternatives were discussed in detail with the patient. They are aware the risks include, but are not limited to, cardiopulmonary events, cerebrovascular events, bleeding, infection, other organ injury, bile duct injury, bile leak, and need for open surgery. They expressed understanding and agreement. Thank you for this consultation and for allowing me to take part in [facility].CJO Return to Office Toribio Muñoz MD for Established Patient 15.EST at [address] [facility] ([place]) on 02/28/2024 at 10:00 AM Whitney Ford MD [address] [place] [address], [phone], [facility] 02/07/2024 07:24:09 Procedures Surgical History Date Name Laterality Status Provider Name and Address Organization Details Recorded Time laparoscopic cholecystectomy with cholangiography completed Heather Bautista [facility] 02/28/2024 10:43:31 024 sigmoid colectomy completed Stacy Andino [facility] 10/02/2023 12:41:25 024 colonoscopy completed [facility] 09/12/2023 09:30:58 Colonoscopy with biopsy completed Not Available Health Note 03/10/2024 10:58:18 Removal of gallbladder completed Not Available Health Note 03/10/2024 10:58:18 Total hip arthroplasty completed Not Available Health Note 03/10/2024 10:58:18 Carpal tunnel surgery completed [facility] 09/12/2023 09:28:27 total replacement of left hip joint completed [facility] 09/12/2023 09:29:01 colonoscopy completed [facility] 09/12/2023 09:29:18 Imaging Results Imaging Date Name Status LastModified by Organization Details LastModified Time 01/22/2024 CT, abdomen + pelvis, w/ contrast completed [email or web address] [facility] [address] [place] [address], [id number], 01/25/2024 11:56:33 02/28/2024 XR, abdomen, 1 view completed KALEN [facility] [address] [place] [address], [id number], 03/08/2024 13:30:10 09/25/2023 imaging/diagnosti c result completed [email or web address] Information not available 03/12/2024 07:02:51 03/18/2024 MR, cholangiopancreat ogram, w/o contrast completed [email or web address] [facility] [address] [place] [address], [id number], 04/10/2024 18:28:23 01/29/2024 NM, hepatobiliary scan completed [email or web address] Information not available 03/21/2024 13:41:10 Procedure Notes None recorded. Medical Equipment None Reported. Allergies Allergen ID Allergen Name Allergen Category Reaction Reaction Severity Criticality Documentation Date Start Date Code Code System Note Provider Name and Address Organization Details Recorded Time 6815508 clindamyc in Not available itching rash Not available Not available Not available 09/12/2023 2582 RxNorm Not Available Not Available Not Available Medications Name Sig Start Date Stop Date Status Note LastModified by Organization Details LastModified Time neomycin-eduin ymyxin-hydro duane 3.5 mg/mL-10,000 unit/mL-1 % ear solution 09/14 completed Not Available Not Available Not Available hydrocodone 5 mg-acetamino phen 325 mg tablet Take 1-2 tablet(s ) EVERY 6 HOURS by mouth as needed for pain active Not Available Not Available No t Available ondansetron HCl 4 mg tablet active Not Available Not Available Not Available metronidazol e 500 mg tablet take one tab at 1pm, 2pm and 11pm orally the day before surgery 10/01 completed Not Available Not Available Not Available tramadol 50 mg tablet Take 1-2 tabs p.o. daily to 3 times daily as needed 11/27/ 2024 active Not Available Not Available Not Avai lable glimepiride 2 mg tablet active Not Available Not Available Not Available dicyclomine 20 mg tablet TAKE ONE TABLET BY MOUTH DAILY TO 3 TIMES DAILY 2024 active Not Available Not Available Not Avai lable OneTouch Ultra Test strips active Not Available Not Available Not Available docusate sodium 100 mg capsule Take 1 capsule every 12 hours by oral route. active Not Available Not Available No t Available gabapentin 100 mg capsule Take 1 capsule 3 times a day by oral route for 14 days. active Not Available Not Available No t Available levofloxacin 750 mg tablet 09/14 completed Not Available Not Available Not Available neomycin 500 mg tablet 2 tabs at 1pm, 2pm and 11pm orally the day before surgery 10/01 completed Not Available Not Available Not Available amoxicillin 875 mg-potassium clavulanate 125 mg tablet 02/27 completed Not Available Not Available Not Available enoxaparin 40 mg/0.4 mL subcutaneous syringe 10/24 completed Not Available Not Available Not Available OneTouch Ultra2 Meter active Not Available Not Available Not Available OneTouch Delica Plus Lancet 33 gauge active Not Available Not Available Not Available Vitals Date Recorded Body height Body mass index (BMI) Body weight Systolic blood pressure Diastolic blood pressure Provider Name and Address Organization Details Last Updated DateTime 02/02/2024 185.42 cm 30.8 kg/m2 806899.1 8 g 152 mm[Hg] 82 mm[Hg] Anand Swanson [facility] 4 12:20:28 Date Recorded Body height Body mass index (BMI) Body weight Heart rate Systolic blood pressure Diastolic blood pressure Provider Name and Address Organization Details Last Updated DateTime 4 185.42 cm 29.9 kg/m2 031999. 47 g 65 /min 181 mm[Hg] 93 mm[Hg] Heather Casey [facility] 4 10:50:28 Date Recorded Body height Body mass index (BMI) Body weight Systolic blood pressure Diastolic blood pressure Provider Name and Address Organization Details Last Updated DateTime 02/28/2024 185.42 cm 30.1 kg/m2 144905.3 4 g 138 mm[Hg] 80 mm[Hg] Darron Hilliard [facility] 4 14:13:43 Date Recorded Body height Body mass index (BMI) Body weight Systolic blood pressure Diastolic blood pressure Provider Name and Address Organization Details Last Updated DateTime 03/12/2024 182.88 cm 30.5 kg/m2 921434.2 8 g 120 mm[Hg] 80 mm[Hg] Colton Brooke, SKIVING MACHINE OPERATOR, SENIOR PRINCIPAL PROCESS ENGINEER [address] [place] [address], [phone] , [facility] 4 11:03:42 Social History Question Answer Notes LastModified by Organizat ion Details LastModified Time Tobacco Smoking Status Former Smoker Not Available Health Note 03/10/2024 10:58:19 Do You Have An Advance Directive? No [email or web address] Information not available 03/10/2024 What Is Your Level Of Alcohol Consumption? Moderate [email or web address] Information not available 03/10/2024 How Many Times Per Week Do You Consume Alcohol? Less Than 1 Time Per Week [email or web address] Information not available 03/10/2024 What Is Your Level Of Caffeine Consumption? Moderate [email or web address] Information not available 03/10/2024 Are You Currently Employed? No [email or web address] Information not available 03/10/2024 What Is Your Occupation? Retired [email or web address] Information not available 03/10/2024 How Many Times Per Week Do You Exercise? Less Than 1 Time Per Week [email or web address] Information not available 03/10/2024 When Did You Quit Smoking? 1999 Information not available 09/12/2023 Do You Have A Medical Power Of Convention Services Manager? No [email or web address] Information not available 10/19/2023 What Was The Date Of Your Most Recent Tobacco Screening? 03/12/2024 [email or web address] Information not available 03/10/2024 What Is Your Relationship Status? [email or web address] Information not available 03/10/2024 Do You Use Any Illicit Or Recreational Drugs? No [email or web address] Information not available 03/10/2024 Sex: Unknown Functional Status Question Answer Note LastModified by Organization D etails LastModified Time What is your exercise level? Moderate [email or web address] Information not available 03/10/2024 Mental Status None recorded. Family History Relationship Description Onset Age of this Age Resolved Age Notes LastModified by Organization Details LastModified Time Father Malignant tumor of colon [email or web address] Not available 09/14 08:56:15 Father Polyp of colon [email or web address] Not available 09/14 08:56:28 Father Family history of malignant neoplasm [email or web address] Not available 2023 17:25:57 Mother Family history of malignant neoplasm [email or web address] Not available 2023 17:25:57 Mother Diabetes mellitus [email or web address] Not available 2023 17:25:57 Medical History Condition Response Diabetes Y Anxiety Disorder N Bleeding Disorder N Attention-deficit Hyperactivity Disorder N High Blood Pressure N Arthritis N Hyperlipidemia N Cancer Y Stroke N Thyroid Problems N Asthma N Depression N COPD N Anemia N Seizures N Heart Disease N Fibromyalgia N Osteoporosis N Kidney Disease N Past Encounters Encounter ID Performer Location Encounter Start Date Encounter Closed Date Diagnosis/Indication Diagnosis SNOMED-CT Code Diagnosis ICD10 Code Diagnosis Note [id number] Toribio Muñoz MD [address] [facility] ([place]) [address] [place] [address] 09/15/2023 08:40:24 09/15/2023 10:17:04 Malignant tumor of colon 190028617 C18.9 Malignant tumor of sigmoid colon 035126447 C18.7 [id number] Jhonatan Yanez MD [facility] [address] [facility] ([place]) [address] [place] [address] 09/15/2023 10:59:18 09/15/2023 11:07:31 [id number] Toribio Muñoz MD [address] [facility] [place] [address] [place] [address] 10/06/2023 11:21:13 10/06/2023 12:33:47 Malignant tumor of colon 704474031 C18.9 History of malignant neoplasm of colon 999511397 Z85.371 [id number] Toribio Muñoz MD [address] [facility] ([place] [address] [place] [address] 10/25/2023 10:30:54 10/25/2023 11:27:39 Malignant tumor of colon 320938288 C18.9 [id number] Toribio Muñoz MD [address] [facility] ([place] [address] [place], [place] [address] [place] [address] 12/08/2023 09:55:23 12/08/2023 10:49:57 Malignant tumor of sigmoid colon 470546222 C18.7 [id number] Toribio Muñoz MD [address] [facility] ([place] [address] [place] [address] [place] [address] 01/19/2024 10:51:03 01/19/2024 11:56:39 History of malignant neoplasm of colon 565949916 Z85.038 Additional diagnosis detail: Hx of malignant neoplasm of colon [id number] Whitney Ford MD [address] [facility] ([place]) [address] [place], [place] [address] [place] [address] 02/02/2024 11:19:38 02/02/2024 15:20:58 Biliary dyskinesia 339950990 K82.8 Preprocedu ral examination done 1127499143 00726 Z01.672 [id number] Toribio Muñoz MD [address] [facility] ([place]) [address] [place], [place] [address] [place] [address] 02/28/2024 10:14:11 03/05/2024 05:20:00 History of malignant neoplasm of colon 131013361 Z85.038 Additional diagnosis detail: Hx of malignant neoplasm of colon [id number] Whitney Ford MD [address] [facility] ([place]) [address] [place] [address] [place] [address] 02/28/2024 13:48:49 03/01/2024 05:34:12 Biliary dyskinesia 153536344 K82.8 History an d physical examination, follow-up 040948216 Z09 Pain 36039165 R52 [id number] Colton Brooke, LIAM, SENIOR PRINCIPAL PROCESS ENGINEER [facility] ([place]) [address] [place] [address] 03/12/2024 10:10:41 03/12/2024 11:23:26 Right upper quadrant pain 829428671 R10.11 G89.29 [id number] Colton Brooke, SKIVING MACHINE OPERATOR, SENIOR PRINCIPAL PROCESS ENGINEER [facility] ([place] [address] [facility] [place] [address] 03/27/2024 10:54:06 03/27/2024 11:44:29 Right upper quadrant pain 349999883 R10.11 Health Concerns Section Related Observation LastModified by Organization Detai ls LastModified Time None Recorded Concern Status LastModified by Organization Details LastModified Time None Recorded Advance Directives Directive N: Payers Encounter Date Sequence Insurance Name Policy Number Policy Elliott Covered Member ID Elliott Member ID Guarantor Name 02/02/2024 1 [facility] ON [facility] AFTER [facility] - DUAL ELIG[facility] (MEDICARE REPLACEMENT/ ADVANTAGE - HMO) [id number] Silvio Muir [id number] Silvio Muir 02/28/2024 1 [facility] ON [facility] AFTER 2020 - DUAL ELIGIBLE (MEDICARE REPLACEMENT/ ADVANTAGE - HMO) [id number] Silvio Muir [id number] 1 Silvio Muir 02/28/2024 1 [facility] ON [facility] AFTER 2020 - DUAL ELIGIBLE (MEDICARE REPLACEMENT/ ADVANTAGE - HMO) [id number] Silvio Muir [id number] 1 Silvio Muir 03/12/2024 1 [facility] ON OR AFTER 2020 - DUAL ELIGIBLE (MEDICARE REPLACEMENT/ ADVANTAGE - HMO) [id number] Silvio Muir [id number] 1 Silvio Muir 03/27/2024 1 [facility] ON OR AFTER 2020 - DUAL ELIGIBLE (MEDICARE REPLACEMENT/ ADVANTAGE - HMO) [id number] Silvio Muir [id number] 1 Silvio Muir Notes Date Note Type Note Provider Name and Address Organization Details Recorded Time 02/02/2024 text/html Silvio is a lauraa zoraida 63-year-old gentleman who comes to clinic today at the request of Dr. Muñoz from our colorectal surgery department. He had surgery by Dr. Muñoz for left-sided colon cancer. He said he is over 12 weeks out from surgery. He states that roughly 2 to 2-1/2 months ago he started having intermittent right upper quadrant pain, which was mostly postprandial. He has had some nausea of late. This has worsened. He had a CT scan which did not show any specific gallbladder abnormalities. He also reports having an ultrasound in [place] which did not show gallstones. He had a HIDA scan which showed an ejection fraction of 33%. Specifically, he states that with administration of CCK his pain was significantly worse and consistent with the symptoms he has been having. His pain is mostly right upper quadrant and radiates to his back. Whitney Ford MD [address] [place] [address], [phone], [facility] 02/05/2024 14:42:04 02/28/2024 text/html Silvio is here t o see me after he had his gallbladder out by Dr. Ford. I did a colon cancer operation on him in the recent past as well. He has had worsening right flank pain that was not improved since the cholecystectomy. He has been seen in the emergency room and has had some CT scans and some blood work, none of which have shown much. He was thought initially to have an increased stool burden proximal to the anastomosis; however, he has taken MiraLAX and had more frequent bowel movements, which has not helped at all. He also has an appointment to see Dr. Ford today. 6 week follow up continues with abdominal pain, feels that it is worse than before his lap jarred on 02/08.went o [facility] ER last week due to increase in pain. CT done he was told he had allot of stool, he followed with Colace and Miralax BID, had large amounts of liquid stool.He and his are wondering if he could have sphincter of oddi dysfunction Toribio Muñoz MD [address] [place], [address], [facility] 03/05/2024 16:10:58 03/12/2024 text/html 63-year-old man who is having some significant right upper quadrant discomfort.In terms of medical history just in September he had a colonic resection for a colon cancer done by Dr. Muñoz.This discomfort that he has been having has been going on even before the colon cancer diagnosis, he then had a gallbladder workup done it was deemed that perhaps his gallbladder was the crux of the problem, he had underwent cholecystectomy by Dr. Ford here fairly recently.The discomfort persist. He actually tells me now it is worse with the gallbladder removal than it was prior. It is worse with eating, it is constant, however when he eats it just makes the pain much worse. He has not been able to get much sleep because of this, he is at his wits end about this discomfort. He tells me after he sees me he probably is going to have to go back to the ER for pain control.From laboratories I found the other system his LFTs are normal, I did not see an amylase and lipase in his chart. However Dr. Muñoz's note says that CT scan, laboratories done through ER visit were unrevealing. He did have some stool in his colon at the area of the anastomosis however he is on laxatives for this and moving his bowels fine now and he does not feel the pain is any better.When the pain is real severe and shoots through to his back. He tells me he is in constant pain. Colton Brooke APRN, SENIOR PRINCIPAL PROCESS ENGINEER [address] [place] [address], [phone], [facility] 03/12/2024 11:08:34 03/27/2024 text/html 63-year-old man who continues to have significant right upper quadrant discomfort.Please refer to my note from a couple of weeks or so ago for more of the finer details with respect to this patient's case. Over the summer he underwent colonic resection with Dr. Muñoz for colon cancer, he then underwent a cholecystectomy by Dr. Ford shortly thereafter, there was some potential issues with sphincter of Oddi dysfunction given the pain was worst status postcholecystectomy. It is postprandial pain interferes with his sleep, I am giving him tramadol which seems to take the edge off for a few hours so he can fall asleep. After he eats he gets severe right upper quadrant discomfort.In terms of potential ERCP with sphincterotomy I did speak with Dr. Sheppard about this Dr. Muñoz had already ordered an MRCP which this was done, no signs of ductal dilation was noted, thus Dr. Sheppard did not feel that ERCP was indicated.He continues to have this discomfort, he is very frustrated that no one has been able to tell him what is going on with this. Colton Brooke APRN, SENIOR PRINCIPAL PROCESS ENGINEER [address] [place] [address], [phone], [facility] 03/27/2024 11:40:40
--- OUTSIDE RECORDS SUMMARY | 2024-06-20 08:15 | XMS_ITS | Encounter Summary ---
Author Organization [facility] Address [address] [place] [address] Care Team Providers Care Promotional Advertising Assistant Name Role Phone Joselito Faust MD Primary Care Provider [phone] Encounter Details Date Type Department Care Team (Late st Contact Info) Description 03/30/2020 Hospital Follow-up Call [facility] [address] [place] [address] Laura Zuniga RN Social History Tobacco Use Types Packs/Day Years [...] on file Sexual Orientation Not on file COVID-19 Exposure Response Date Recorded In the last month, have you been in contact with someone who was confirmed or suspected to have Coronavirus / COVID-19? Yes 03/22/2020 8:26 PM CHIP TESTER documented as of this encounter Functional Status * RETIRED Are you deaf or do you have serious difficulty hearing Answer Date of Assessment Author Status No 03/23/2020 3:34 AM CHIP TESTER Activ e * RETIRED Are you blind or do you have serious difficulty seeing, even when wearing glasses? Answer Date of Assessment Author Status No 03/23/2020 3:34 AM CHIP TESTER Activ e * Do you have serious difficulty walking or climbing stairs? Answer Date of Assessment Author Status Yes 03/23/2020 3:34 AM Bib Colindres RN Active * Do you have difficulty dressing or bathing? Answer Date of Assessment Author Status No 03/23/2020 3:34 AM Bib Colindres RN Active * Because of a physical, mental, or emotional condition, do you have difficulty doing errands alone such as visiting a doctor's office or shopping? Answer Date of Assessment Author Status No 03/23/2020 3:34 AM Bib Colindres RN Active documented as of this encounter Mental Status * Because of a physical, mental, or emotional condition, do you have serious difficulty concentrating, remembering, or making decisions? Answer Entry Date Author Status No 03/23/2020 3:34 AM Bib Colindres RN Active documented in this encounter Plan of Treatment Not on file documented as of this encounter Visit Diagnoses Not on filedocumented in this encounter Additional Health Concerns Infection Onset Date Last Indicated Resolved Time COVID-19 Confirmed Comment:Known COVID-19 positive per chart (JJ) 03/23/2020 03/23/2020 05/22/2020 12:33 AM CHIP TESTER documented as of this encounter Care Teams Promotional Advertising Assistant Relationship Specialty Start Date End Date Joselito Faust MD PCP - General FAMILY PRACTICE 03/27/20 documented as of this encounter
--- OUTSIDE RECORDS SUMMARY | 2024-06-20 08:15 | XMS_ITS ---
Author Organization Unknown Address [address] [place] [phone] Phone Care Team Providers Care Head Of Geography Name Role Phone ALEX Peck Attending Unavailable MALIA LOJA CRNA Unavailable PIEDAD Gutierrez Primary Unavailable Immunization Immunization Date Status Additional Notes Code Code System Tdap 12/28/2019 Completed 115 CVX Results BEDSIDE GLUCOSE - Collect Da te/Time: 09/01/2023 13:51 [facility] ID: [id number] [place], [place], [phone] LOINC: 03442-7 Test Value Unit Reference Range Code Code System Flag BEDSIDE GLUCOSE 102 mg/dl L=74 H=106 92351-9 LOINC Social History Type Status Start Date End Date Code Code Syst em Smoking History Unknown if ever smoked [address] Sex Male Vital Signs Vital Sign Value Unit Schleicher Value Schleicher Unit Date/Time Recent/Initial? Code Code System Body Mass Index 29.82 kg/m2 08/22/2023 13:45 Initial 75708 -5 LOINC Systolic Blood Pressure 154 mm[Hg] 09/01/2023 11:26 Initial 8480- 6 LOINC Diastolic Blood Pressure 88 mm[Hg] 09/01/2023 11:26 Initial 8462- 4 LOINC Body Surface Area 2.30 m2 08/22/2023 13:45 Initial 3140- 1 LOINC Height 185.420 0 cm 73.00 in 08/22/2023 13:45 Initial 8302- 2 LOINC O2 Saturation 99 % 2023 11:26 Initial 57926 -5 LOINC Pulse 64.0 /min 09/01/2023 11:26 Initial 8867- 4 LOINC Respiration 16 /min 04/19/20 24 11:26 Initial 9279- 1 LOINC Temperature 36.2 Joselin 97.1 F 09/01/19 11:26 Initial 8310- 5 LOINC Weight 102.51 kg 226.00 lbs 08/22/2023 13:45 Initial 51176 -7 LOINC Medications No Active Medications Assessment You had the following problems:CONTACT WITH AND (SUSPECTED) EXPOSURE TO OTHER VIRAL COMMUNICABLE DISEASES Hospital Discharge Instructions Should you have any questions prior to discharge, please contact a member of your healthcare team. If you have left the hospital and have any questions, please contact your primary care physician. Reason For Referral No Data Found Procedures Procedure Name Date Status Code Code Syste m Carpal tunnel completed 33921800 SNOMEDCT Colonoscopy, flexible; with removal of tumor(s), polyp(s), or other lesion 09/01/2023 completed 08675 CPT Colonoscopy completed 99182320 SNOMEDCT Anesthesia for lower intesti nal endoscopic procedures, endoscope introduce 09/01/2023 completed 65265 CPT Left hip completed 582196648 SNOMEDCT Problems Problem Start Date Resolved Date Status Code Code System CONTACT WITH AND (SUSPECTED) EXPOSURE TO OTHER VIRAL COMMUNICABLE DISEASES active 046982806 SNOMED -CT Allergies and Adverse Reactions Allergy Substance Reaction Severity Start Date Concern Status Co de Code System CLINDAMYCIN Rash (SNOMED-CT: 507756909), Redness (SNOMED-CT: 826680377) Active 2582 RxNorm Plan of Treatment No Data Found Encounters Encounter Diagnosis Start Date Code Code Sys tem Encounter for screening for malignant neoplasm of colo n 09/01/2023 SNOMED-CT Personal Care Team Section Performer Name Performer Role Active Date Inactive HERLINDA Bryan PCP - Primary care physician 2021-05-25 2023-08-25
--- OUTSIDE RECORDS SUMMARY | 2024-06-20 08:16 | XMS_ITS | Clinical Summary ---
Author Organization [facility] Address [address] [place] [address] Care Team Providers Care Neuropsychiatrist Name Role Phone Nate Trujillo MD Primary Care Provider [phone] Source Comments [facility] [employer],non-owned Affiliates and Associated Physician Practices is amultiple site organization consisting of ambulatory clinics and hospital sitesin [place], [place], [place] and [place]. This disclosure is being madepursuant to the Care Everywhere program and may not contain all information available regarding this patient. Last updated 18.[facility] [employer] Allergies Active Allergy Reactions Criticality Noted Date Comments Clindamycin Itching,Rash Medium 04/30/2024 Medications * Be aware that medications may not be up to date on this document. Alwaysverify current medications with the patient. Medication Sig Dispensed Refills Start Date End Date Status Blood Glucose Monitoring Suppl (ONE TOUCH ULTRA 2) w/Device KIT 09/04/2023 Active dicyclomine (Bentyl) 20 MG tablet Take 1 (one) tablet by mouth 3 times daily 03/27/2024 Active Docusate Sodium (DSS) 100 MG Take 1 capsule by mouth once daily Active glimepiride (Amaryl) 2 MG tablet Take 1 (one) tablet by mouth daily with breakfast Active OneTouch Ultra test strip 1 (one) strip as directed 09/04/2023 Active Lancets (ONETOUCH DELICA PLUS 33G EXTRA FINE LANCET) 09/04/2023 Active traMADol (Ultram) 50 MG tablet Take 1 (one) tablet by mouth 3 times daily as needed for Pain 15 tablet 05/02/2024 Active Active Problems Problem Noted Date Diagnosed Date Acute pancreatitis, unspecif ied complication status, unspecified pancreatitis type 05/01/2024 Encounters Date Type Department Care Team Description 05/01/2024 2:12 PM PROCESS IMPROVEMENT CONSULTANT Anesthesia Event [facility] [address] [place] [address] Sky Dye MD McGee, Jeffrey, Anes Asst 05/01/2024 1:00 PM PROCESS IMPROVEMENT CONSULTANT - 05/01/2024 2:30 PM PROCESS IMPROVEMENT CONSULTANT Surgery [facility] [address] [place] [address] Ирина Diaz MD EGD / EUS +/- ERCP 05/01/2024 11:22 AM PROCESS IMPROVEMENT CONSULTANT - 05/02/2024 3:40 PM PROCESS IMPROVEMENT CONSULTANT Hospital Encounter [facility] [address] [place] [address] Ирина Diaz MD Felgenhauer, Joshua, MD Arshad, Iqra, MD Surgery General Discharge Disposition: Home or Self Care 05/01/2024 Travel 04/30/2024 9:30 AM PROCESS IMPROVEMENT CONSULTANT Office Visit [facility] [address] [place] [phone] Ирина Diaz MD RUQ pain (Primary Dx); Colon adenocarcinoma (HCC); Family history of colon cancer in father; Hx of cholecystectomy 04/30/2024 Telephone [facility] [address] [place] [phone] Wu Del Rosario RN Procedure (EGD + EUS +/- ERCP for cholelithiasis from Dr Diaz for patient seen in his clinic) 04/30/2024 Travel 04/10/2024 Travel from Last 3 Months Social History Tobacco Use Types Packs/Day Years Used Date Smoking Tobacco: Former Cigarettes Smokeless Tobacco: Never Tobacco Cessation:Counseling Given: Not Answered Comments:Quit smoking in 1999 Alcohol Use Standard Drinks/Week Comments Yes 0 (1 standard drink = 0.6 oz pur e alcohol) beer once a month Sex and Gender Information Value Date Recorded Sex Assigned at Not on file Gender Identity Not on file Sexual Orientation Not on file Last Filed Vital Signs Vital Sign Reading Time Taken Comments Blood Pressure 174/79 05/02/2024 11:12 AM PROCESS IMPROVEMENT CONSULTANT Pulse 59 05/02/2024 10:53 AM PROCESS IMPROVEMENT CONSULTANT Temperature 36.9 C (98.4 F) 05/02/2024 10:53 AM PROCESS IMPROVEMENT CONSULTANT Respiratory Rate 16 05/02/2024 10:53 AM PROCESS IMPROVEMENT CONSULTANT Oxygen Saturation 99% 05/02/2024 10:53 AM PROCESS IMPROVEMENT CONSULTANT Inhaled Oxygen Concentration - - Weight 96.2 kg (212 lb) 05/01/2024 7:27 PM PROCESS IMPROVEMENT CONSULTANT Height 185.4 cm (6' 1 ) 05/01/2024 7:27 PM PROCESS IMPROVEMENT CONSULTANT Body Mass Index 27.97 05/01/2024 7:27 PM PROCESS IMPROVEMENT CONSULTANT Plan of Treatment Upcoming Encounters Date Type Department Care Team (Late st Contact Info) Description 10/29/2024 9:30 AM CDT Office Visit [facility] [address] [place] [address], [facility] [place] [address] Ирина Diaz MD [address] [place] [address] Health Maintenance Due Date Last Done Comments COLOGUARD (AGES 45-75) - COLON CA SCREENING 1960 COLON MONITORING 1960 COLONOSCOPY - COLON CA SCREENING 1960 CT COLONOGRAPHY - COLON CA SCREENING 1960 Colorectal Cancer Screening 1960 FIT - COLON CA SCREENING 1960 FLEX SIG - COLON CA SCREENING 1960 LIPID TESTING 1960 HEPATITIS C SCREENING 05/10/1976 DTAP/TDAP/TD VACCINES (1 - Tdap) 1977 PNEUMOCOCCAL VACCINE 50+ (1 of 2 - PCV) 1977 ZOSTER VACCINE (1 of 2) 2008 AAA SCREENING 2023 COVID-19 VACCINE (1 - 2023- season) 2024 INFLUENZA VACCINE (#1) 2024 03/27/2020 DEPRESSION SCREENING 2024 SCREENING FOR DIABETES 05/02/2027 , 05/02/2024, 05/02/2024, Additional history exists Respiratory Syncytial Virus (RSV) Vaccine Pt: or over 60 yrs (1 - 1-dose 75+ series) 2033 HEPATITIS B VACCINE Aged Out No longe r eligible based on patient's age to complete this topic HIB VACCINE Aged Out No longer eligi ble based on patient's age to complete this topic HPV VACCINE Aged Out No longer eligi ble based on patient's age to complete this topic MENINGOCOCCAL (Group B) VACCINE Aged Out No longer eligible based on patient's age to complete this topic MENINGOCOCCAL VACCINE Aged Out No ciara francesco eligible based on patient's age to complete this topic Goals Goal Patient Goal Type Associated Problems Recent Progress Patient-Stated? Author Medication Management General On track( 024 9:03 AM PROCESS IMPROVEMENT CONSULTANT) No Joaquin Barahona, RN Note: Expected end date: ongoing Interventions: Take all medications as prescribed Let your doctor know right away about any changes in your medications Make sure to request a refill of your medication at least one week prior to your last dose Procedures Procedure Name Priority Date/Time Associated Diagnosis Comments GLUCOSE - POINT OF CARE Routine 05/02/2024 10:53 AM PROCESS IMPROVEMENT CONSULTANT GLUCOSE - POINT OF CARE Routine 05/02/2024 7:32 AM PROCESS IMPROVEMENT CONSULTANT PT EVAL AND TREAT Routine 05/02/2024 7:1 7 AM PROCESS IMPROVEMENT CONSULTANT OT EVAL AND TREAT Routine 05/02/2024 7:1 7 AM PROCESS IMPROVEMENT CONSULTANT PHOSPHORUS BLOOD Routine 05/02/2024 4:26 AM PROCESS IMPROVEMENT CONSULTANT Chronic pancreatitis, unspecified pancreatitis type (HCC) MAGNESIUM BLOOD Routine 05/02/2024 4:26 AM PROCESS IMPROVEMENT CONSULTANT Chronic pancreatitis, unspecified pancreatitis type (HCC) COMPREHENSIVE METABOLIC PANEL Routine 05/02/2024 4:26 AM PROCESS IMPROVEMENT CONSULTANT Chronic pancreatitis, unspecified pancreatitis type (HCC) CBC W AUTO DIFFERENTIAL Routine 05/02/2024 4:26 AM PROCESS IMPROVEMENT CONSULTANT Chronic pancreatitis, unspecified pancreatitis type (HCC) GLUCOSE - POINT OF CARE Routine 05/01/2024 9:33 PM PROCESS IMPROVEMENT CONSULTANT PHOSPHORUS BLOOD Routine 05/01/2024 8:41 PM PROCESS IMPROVEMENT CONSULTANT Chronic pancreatitis, unspecified pancreatitis type (HCC) MAGNESIUM BLOOD Routine 05/01/2024 8:41 PM PROCESS IMPROVEMENT CONSULTANT Chronic pancreatitis, unspecified pancreatitis type (HCC) LIPASE BLOOD Routine 05/01/2024 8:41 PM PROCESS IMPROVEMENT CONSULTANT Chronic pancreatitis, unspecified pancreatitis type (HCC) HEMOGLOBIN A1C Routine 05/01/2024 8:41 PM PROCESS IMPROVEMENT CONSULTANT Type 2 diabetes mellitus without complication, without long-term current use of insulin (HCC) COMPREHENSIVE METABOLIC PANEL Routine 05/01/2024 8:41 PM PROCESS IMPROVEMENT CONSULTANT Chronic pancreatitis, unspecified pancreatitis type (HCC) CBC W AUTO DIFFERENTIAL Routine 05/01/2024 8:41 PM PROCESS IMPROVEMENT CONSULTANT Chronic pancreatitis, unspecified pancreatitis type (HCC) ERCP Routine 05/01/2024 2:38 PM PROCESS IMPROVEMENT CONSULTANT PATHOLOGY TISSUE Routine 05/01/2024 2:21 PM PROCESS IMPROVEMENT CONSULTANT Cholecystitis WI ERCP DX W BRUSH WASH WHEN PERF 05/01/2024 2:08 PM PROCESS IMPROVEMENT CONSULTANT Cholecystitis WI ENDOSCOPIC ULTRASOUND EXAM 05/01/2024 2:08 PM PROCESS IMPROVEMENT CONSULTANT Cholecystitis EGD Routine 05/01/2024 1:56 PM PROCESS IMPROVEMENT CONSULTANT ENDOSCOPIC ULTRASONOGRAPHY, GI Routine 05/01/2024 1:54 PM PROCESS IMPROVEMENT CONSULTANT GLUCOSE - POINT OF CARE Routine 05/01/2024 12:54 PM PROCESS IMPROVEMENT CONSULTANT from Last 3 Months Results * (ABNORMAL) GLUCOSE - POINT OF CARE (05/02/2024 10:53 AM PROCESS IMPROVEMENT CONSULTANT) Only the most recent of4 resultswithin the time period is included. Glucose WB/POC 149(H) 70 - 99 mg/dL 05/02/2024 11:05 AM PROCESS IMPROVEMENT CONSULTANT [facility] Specimen Type Cap Fingerstick 2023 11:05 AM PROCESS IMPROVEMENT CONSULTANT [facility] Blood BLOOD SPECIMEN / Unknown 05/02/2024 10:53 AM PROCESS IMPROVEMENT CONSULTANT 05/02/2024 11:05 AM PROCESS IMPROVEMENT CONSULTANT Sharon Valentine MD LAB - POINT OF CARE ORDERABLES [facility] [address] [place] [phone] [phone] * (ABNORMAL) CBC W AUTO DIFFERENTIAL (05/02/2024 4:26 AM PROCESS IMPROVEMENT CONSULTANT) Only the most recent of2 resultswithin the time period is included. WBC 6.1 4.0 - 10.7 x10E9/L 05/02/2024 5:15 AM [facility] RBC Count 5.32 4.30 - 5.80 x10E12/L 05/02/2024 5:15 AM [facility] Hemoglobin 15.0 13.3 - 17.5 g/dL 05/02/2024 5:15 AM [facility] Hematocrit 43.2 38.7 - 51.1 % 05/02/2024 5:15 AM [facility] MCV 81.2 80.0 - 98.0 fL 05/02/2024 5:15 AM [facility] MCH 28.2 26.7 - 33.6 pg 05/02/2024 5:15 AM [facility] MCHC 34.7 31.7 - 36.3 g/dL 05/02/2024 5:15 AM [facility] RDW-CV 12.1 11.3 - 14.8 % 05/02/2024 5:15 AM [facility] Platelet Count 181 150 - 420 x10E9/L 05/02/2024 5:15 AM [facility] MPV 12.4(H) 7.8 - 11.4 fL 05/02/2024 5:15 AM [facility] Neutrophil % 64.1 41.0 - 74.0 % 05/02/2024 5:15 AM [facility] Lymphocyte % 20.2 17.0 - 47.0 % 05/02/2024 5:15 AM [facility] Monocyte % 11.1(H) 3.0 - 11.0 % 05/02/2024 5:15 AM [facility] Eosinophil % 3.6 0.0 - 7.0 % 05/02/2024 5:15 AM [facility] Basophil % 0.8 0.0 - 1.6 % 05/02/2024 5:15 AM [facility] Immature Granulocytes % 0.2 0.0 - 1.0 % 05/02/2024 5:15 AM [facility] Neutrophil Absolute 3.93 1.60 - 7.50 x10E9/L 05/02/2024 5:15 AM [facility] Lymphocyte Absolute 1.24 1.00 - 4.40 x10E9/L 05/02/2024 5:15 AM [facility] Monocyte Absolute 0.68 0.15 - 1.00 x10E9/L 05/02/2024 5:15 AM [facility] Eosinophil Absolute 0.22 0.00 - 0.60 x10E9/L 05/02/2024 5:15 AM [facility] Basophil Absolute 0.05 0.00 - 0.13 x10E9/L 05/02/2024 5:15 AM [facility] Blood BLOOD SPECIMEN / Unknown Lab Venipuncture / Unknown 05/02/2024 4:26 AM PROCESS IMPROVEMENT CONSULTANT 05/02/2024 5:05 AM [facility] Chapincito Cummings MD LAB - HEMATOLOGY O RDERABLES Performing Organization Address [facility]/State/ZIP Co de Phone Number [facility] [address] [place] [address], [facility] [phone] * (ABNORMAL) COMPREHENSIVE METABOLIC PANEL (05/02/2024 4:26 AM [facility]) Only the most recent of2 resultswithin the time period is included. BUN 10 7 - 26 mg/dL 05/02/2024 5:34 AM [facility] Creatinine 0.80 0.71 - 1.16 mg/dL 05/02/2024 5:34 AM [facility] Sodium 134(L) 136 - 145 mmol/L 05/02/2024 5:34 AM [facility] Potassium 3.7 3.5 - 4.5 mmol/L 05/02/2024 5:34 AM [facility] Chloride 108(H) 98 - 107 mmol/L 05/02/2024 5:34 AM [facility] CO2 23 22 - 29 mmol/L 05/02/2024 5:34 AM [facility] Glucose 125(H) 70 - 99 mg/dL 05/02/2024 5:34 AM [facility] Calcium 9.2 8.4 - 10.2 mg/dL 05/02/2024 5:34 AM [facility] Protein Total 6.4 6.0 - 8.3 g/dL 05/02/2024 5:34 AM [facility] Albumin 3.6 3.4 - 5.0 g/dL 05/02/2024 5:34 AM [facility] Bilirubin Total 0.9 0.2 - 1.2 mg/dL 05/02/2024 5:34 AM [facility] Alkaline Phosphatase 83 40 - 150 U/L 05/02/2024 5:34 AM [facility] ALT 34 5 - 55 U/L 05/02/2024 5:34 AM [facility] AST 34 5 - 34 U/L 05/02/2024 5:34 AM [facility] Anion Gap 3(L) 6 - 16 05/02/2024 5:34 AM [facility] BUN/Creatinine Ratio 13 7 - 23 05/02/2024 5:34 AM [facility] Osmolality Calculated 279 275 - 295 mOsm/kg 05/02/2024 5:34 AM [facility] Albumin/Globulin Ratio 1.3 1.1 - 2.3 05/02/2024 5:34 AM [facility] eGFR by CKD-EPI >90 >=90 mL/min/1.7 3 m2 05/02/2024 5:34 AM [facility] Blood BLOOD SPECIMEN / Unknown Lab Venipuncture / Unknown 05/02/2024 4:26 AM PROCESS IMPROVEMENT CONSULTANT 05/02/2024 5:05 AM [facility] Chapincito Cummings MD LAB - CHEMISTRY OR DERABLES Performing Organization Address City/State/[facility] Co de Phone Number [facility] [address] [place] [address], [facility] [phone] * PHOSPHORUS BLOOD (05/02/2024 4:26 AM PROCESS IMPROVEMENT CONSULTANT) Only the most recent of2 resultswithin the time period is included. Phosphorus 3.6 2.8 - 5.1 mg/dL 05/02/2024 5:34 AM [facility] Blood BLOOD SPECIMEN / Unknown Lab Venipuncture / Unknown 05/02/2024 4:26 AM PROCESS IMPROVEMENT CONSULTANT 05/02/2024 5:05 AM PROCESS IMPROVEMENT CONSULTANT Chapincito Cummings MD LAB - CHEMISTRY OR DERABLES [facility] [address] [place] [address], [facility] [phone] * MAGNESIUM BLOOD (05/02/2024 4:26 AM PROCESS IMPROVEMENT CONSULTANT) Only the most recent of2 resultswithin the time period is included. Magnesium 2.0 1.6 - 2.6 mg/dL 05/02/2024 5:34 AM [facility] Blood BLOOD SPECIMEN / Unknown Lab Venipuncture / Unknown 05/02/2024 4:26 AM PROCESS IMPROVEMENT CONSULTANT 05/02/2024 5:05 AM PROCESS IMPROVEMENT CONSULTANT Chapincito Cummings MD LAB - CHEMISTRY OR DERABLES [facility] [address] [place] [address], [facility] [phone] * (ABNORMAL) HEMOGLOBIN A1C (05/01/2024 8:41 PM PROCESS IMPROVEMENT CONSULTANT) Hemoglobin A1c 6.6(H) <=5.6 % 05/02/2024 8:24 AM [facility] Estimated Average Glucose 143 mg/dL 05/02/2024 8:24 AM [facility] Comment: HbA1c Interpretation: Normal : < 5.7% Pre-diabetes: 5.7-6.4% Diabetes: Equal to or greater than 6.5% Test results diagnostic of diabetes should be repeated for confirmation. Treatment target values recommended by ADA and other clinical organizations should be used to evaluate metabolic control in patients. Reference: [place] [employer], Standards of Care in Diabetes -2020 In patients 70 years and older consider HbA1c target range of 7.0-7.5% (Reference: Eusebio José et al. DEIRDREDA. 2012) The Sebia assay for the measurement of HbA1c is a National Glycohemoglobin Standardization Program (NGSP) certified method. Blood BLOOD SPECIMEN / Unknown Lab Venipuncture / Unknown 05/01/2024 8:41 PM PROCESS IMPROVEMENT CONSULTANT 05/01/2024 8:46 PM PROCESS IMPROVEMENT CONSULTANT Chapincito Cummings MD LAB - CHEMISTRY OR DERABLES Performing Organization Address City/[facility]/ZIP Co de Phone Number [address] [address], [facility] [phone] * LIPASE BLOOD (05/01/2024 8:41 PM PROCESS IMPROVEMENT CONSULTANT) Lipase 10 8 - 78 U/L 05/01/2024 9:15 PM PROCESS IMPROVEMENT CONSULTANT [facility] Blood BLOOD SPECIMEN / Unknown Lab Venipuncture / Unknown 05/01/2024 8:41 PM PROCESS IMPROVEMENT CONSULTANT 05/01/2024 8:47 PM PROCESS IMPROVEMENT CONSULTANT Narrative [facility] - 05/01/2024 9:15 PM PROCESS IMPROVEMENT CONSULTANT Lipase results from the Alejandro Alinity analyzer may not be comparable with other methodologies. Chapincito Cummings MD LAB - CHEMISTRY OR DERABLES Performing Organization Address City/[facility]/ZIP Co de Phone Number [address] [address], [facility] [phone] * ERCP (05/01/2024 2:38 PM PROCESS IMPROVEMENT CONSULTANT) Report Endoscopy POC Endoscopy Department Report _ Patient Name: Silvio Muir Procedure Date: 05/01/2024 2:38 PM Date of : 1960 Classification: Outpatient Gender: Male Ethnicity: Unknown Race: Unknown _ Providers: Ирина Diaz MD Referring MD: Asad Waldrop MD Procedure: ERCP Indications: Common bile duct sludge Medications: Monitored Anesthesia Care, Indomethacin 100 mg WI Description of Procedure: Pre-Anesthesia Assessment: - Prior to the procedure, a History and Physical was performed, and patient medications and allergies were reviewed. The patient's tolerance of previous anesthesia was also reviewed. The risks and benefits of the procedure and the sedation options and risks were discussed with the patient. All questions were answered, and informed consent was obtained. Prior Anticoagulants: The patient has taken no anticoagulant or antiplatelet agents. ASA Grade Assessment: II - A patient with mild systemic disease. After reviewing the risks and benefits, the patient was deemed in satisfactory condition to undergo the procedure. After obtaining informed consent, the scope was passed under direct vision. Throughout the procedure, the patient's blood pressure, pulse, and oxygen saturations were monitored continuously. The Duodenoscope was introduced through the mouth, and advanced to the duodenum and used to inject contrast into the bile duct. The ERCP was accomplished without difficulty. The patient tolerated the procedure well. Findings: A plate grinder film of the abdomen was obtained. Surgical clips, consistent with a previous cholecystectomy, were seen in the area of the right upper quadrant of the abdomen. The esophagus was successfully intubated under direct vision. The scope was advanced to a normal major papilla in the descending duodenum without detailed examination of the pharynx, larynx and associated structures, and upper GI tract. The upper GI tract was grossly normal. The bile duct was deeply cannulated with the short-nosed traction sphincterotome. Contrast was injected. I personally interpreted the bile duct images. Ductal flow of contrast was adequate. Image quality was adequate. The intra-hepatic and extra-hepatic biliary duct system was normal. A 4 mm biliary sphincterotomy was made with a traction (standard) sphincterotome. There was no post-sphincterotomy bleeding. The biliary tree was swept with a 9 mm balloon starting at the bifurcation. Minimal amount of sludge was swept from the duct. Preparations were made for cholangiography using balloon occlusion technique. A balloon-tipped catheter was advanced to the hepatic duct bifurcation. The balloon was inflated to 9 mm in size. Contrast was then injected into the biliary tree and opacified the entire main bile duct. Final cholangiogram showed no evidence of filling defects. Estimated Blood Loss: Estimated blood loss: none. Complications: No immediate complications. Impression: - The cholangiogram was normal. - A biliary sphincterotomy was performed. - The biliary tree was swept and small amount of sludge was found. Recommendation: - Discharge patient to home. - Clear liquid diet today and if pain free this evening advance as tolerated. - Continue present medications. - Return to my office as previously scheduled. - Patient has a contact number available for emergencies. The signs and symptoms of potential delayed complications were discussed with the patient. Return to normal activities tomorrow. Written discharge instructions were provided to the patient. The potential complications and concerning symptoms/findings, including but not limited to early or delayed fevers, infection, pain, bleeding, perforation, pancreatitis, and stent migration/obstruction were discussed with the patient/caregiver. Procedure Code(s): --- Professional --- 71403, Endoscopic retrograde cholangiopancreatography (ERCP); with removal of calculi/debris from biliary/pancreatic duct(s) 13868, Endoscopic retrograde cholangiopancreatography (ERCP); with sphincterotomy/papillotom y 17290, Endoscopic catheterization of the biliary ductal system, radiological supervision and interpretation Diagnosis Code(s): --- Professional --- K80.50, Calculus of bile duct without cholangitis or cholecystitis without obstruction CPT copyright 2021 [employer]. All rights reserved. The codes documented in this report are preliminary and upon pecan mallow dipper review may be revised to meet current compliance requirements. Ирина Diaz MD 05/01/2024 3:32:12 PM This report has been signed electronically. Note Initiated On: 05/01/2024 2:38 PM Number of Addenda: [address] [address] [facility] 05/01/2024 2:38 PM PROCESS IMPROVEMENT CONSULTANT Ирина Diaz MD GI PROCEDURE ORDERAB LES [facility] * PATHOLOGY TISSUE (05/01/2024 2:21 PM PROCESS IMPROVEMENT CONSULTANT) Case Report Surgical Pathology Report Case: [id number] Authorizing Provider: Ирина Diaz MD Collected: 05/01/2024 02:21 PM Ordering Location: [facility] Received: 05/01/2024 03:27 PM Pathologist: Tona De Los Santos MD Specimen: Gastric, Biopsy - R/O H pylori 05/02/2024 10:35 AM [facility] Final Diagnosis Stomach, biopsy (A): - No histopathologic abnormality - No granulomas or dysplasia 05/02/2024 10:35 AM [facility] Microscopic Description and Comment Microscopic examination substantiates the final diagnosis. 05/02/2024 10:35 AM [facility] Clinical History The patient is a 63-year-old man with abdominal pain in the right upper quadrant. Operative procedure/findings: EGD - erythematous mucosa in the pylorus, biopsy to rule out H. pylori 05/02/2024 10:35 AM [facility] Gross Description The requisition and specimen(s) are identified with the patient's name, Silvio Muir. Received in formalin, specimen A , consists of 2 fairbanks-pink tissue fragments, 0.2-0.3 cm in greatest dimension and 0.5 x 0.2 x 0.1 cm in aggregate. The specimen is submitted in toto in cassette A1. MB 05/02/2024 10:35 AM [facility] Pathologist Location at [facility] 05/02/2024 10:35 AM [facility] Disclaimer The performance characteristics of all immunohistochemical and indirect immunofluorescence stains (if any) cited in this report were determined by the Histopathology Laboratory of [facility]. Some of these tests were developed by our own laboratory and have not been cleared or approved by the US Food and Drug Administration. The FDA does not require this test to go through premarket FDA review. These tests are used for clinical purposes. They should not be regarded as investigational or for research. This laboratory is certified under the Clinical Laboratory Improvement Amendments (CLIA) as qualified to perform high complexity clinical laboratory testing. This case has been personally reviewed and interpreted by the attending (teaching) pathologist. 05/02/2024 10:35 AM PROCESS IMPROVEMENT CONSULTANT [facility] Embedded Images 05/02/2024 10:35 AM PROCESS IMPROVEMENT CONSULTANT [facility] Biopsy, NOS GASTRIC CONTENTS SPECIMEN / Unknown 05/01/2024 2:21 PM PROCESS IMPROVEMENT CONSULTANT 05/01/2024 3:27 PM PROCESS IMPROVEMENT CONSULTANT Ирина Diaz MD LAB - PATHOLOGY/CYTO LOGY ORDERABLES Performing Organization Address City/State/[facility] Co de Phone Number [facility] [address] [phone] * EGD (05/01/2024 1:56 PM PROCESS IMPROVEMENT CONSULTANT) Report Endoscopy POC Endoscopy Department Report _ Patient Name: Silvio Muir Procedure Date: 05/01/2024 1:56 PM Date of : 1960 Classification: Outpatient Gender: Male Ethnicity: Unknown Race: Unknown _ Providers: Ирина Diaz MD Referring MD: Asad Waldrop MD Procedure: Upper GI endoscopy Indications: Abdominal pain in the right upper quadrant Medications: Monitored Anesthesia Care Description of Procedure: Pre-Anesthesia Assessment: - Prior to the procedure, a History and Physical was performed, and patient medications and allergies were reviewed. The patient's tolerance of previous anesthesia was also reviewed. The risks and benefits of the procedure and the sedation options and risks were discussed with the patient. All questions were answered, and informed consent was obtained. Prior Anticoagulants: The patient has taken no anticoagulant or antiplatelet agents. ASA Grade Assessment: II - A patient with mild systemic disease. After reviewing the risks and benefits, the patient was deemed in satisfactory condition to undergo the procedure. After obtaining informed consent, the endoscope was passed under direct vision. Throughout the procedure, the patient's blood pressure, pulse, and oxygen saturations were monitored continuously. The Endoscope was introduced through the mouth, and advanced to the second part of duodenum. The upper GI endoscopy was accomplished without difficulty. The patient tolerated the procedure well. Findings: A small-sized hiatal hernia was present. The exam of the esophagus was otherwise normal. Localized mildly erythematous mucosa without bleeding was found at the pylorus. Biopsies were taken with a cold forceps for histology. The exam of the stomach was otherwise normal. Localized mildly erythematous mucosa without active bleeding and with no stigmata of bleeding was found in the first portion of the duodenum. The second portion of the duodenum was normal. Estimated Blood Loss: Estimated blood loss: none. Complications: No immediate complications. Impression: - Small-sized hiatal hernia. - Erythematous mucosa in the pylorus. Biopsied. - Erythematous duodenopathy. - Normal second portion of the duodenum. Recommendation: - Discharge patient to home. - Resume previous diet. - Continue present medications. - Await pathology results. - Perform an upper endoscopic ultrasound (UEUS) today. - Patient has a contact number available for emergencies. The signs and symptoms of potential delayed complications were discussed with the patient. Return to normal activities tomorrow. Written discharge instructions were provided to the patient. Procedure Code(s): --- Professional --- 31168, Esophagogastroduo denoscopy, flexible, transoral; with biopsy, single or multiple Diagnosis Code(s): --- Professional --- K44.9, Diaphragmatic hernia without obstruction or gangrene K31.89, Other diseases of stomach and duodenum R10.11, Right upper quadrant pain CPT copyright 2021 [employer]. All rights reserved. The codes documented in this report are preliminary and upon pecan mallow dipper review may be revised to meet current compliance requirements. Ирина Diaz MD 05/01/2024 3:11:41 PM This report has been signed electronically. Note Initiated On: 05/01/2024 1:56 PM Number of Addenda: [address] [id number] [facility] 05/01/2024 1:56 PM PROCESS IMPROVEMENT CONSULTANT Ирина Diaz MD GI PROCEDURE ORDERAB LES [facility] * ENDOSCOPIC ULTRASONOGRAPHY, GI (05/01/2024 1:54 PM PROCESS IMPROVEMENT CONSULTANT) Report Endoscopy POC Endoscopy Department Report _ Patient Name: Silvio Muir Procedure Date: 05/01/2024 1:54 PM Date of : 1960 Classification: Outpatient Gender: Male Ethnicity: Unknown Race: Unknown _ Providers: Ирина Diaz MD Referring MD: Procedure: Upper EUS Indications: Abdominal pain in the right upper quadrant Medications: Monitored Anesthesia Care Description of Procedure: Pre-Anesthesia Assessment: - Prior to the procedure, a History and Physical was performed, and patient medications and allergies were reviewed. The patient's tolerance of previous anesthesia was also reviewed. The risks and benefits of the procedure and the sedation options and risks were discussed with the patient. All questions were answered, and informed consent was obtained. Prior Anticoagulants: The patient has taken no anticoagulant or antiplatelet agents. ASA Grade Assessment: II - A patient with mild systemic disease. After reviewing the risks and benefits, the patient was deemed in satisfactory condition to undergo the procedure. After obtaining informed consent, the endoscope was passed under direct vision. Throughout the procedure, the patient's blood pressure, pulse, and oxygen saturations were monitored continuously. The [id number] was introduced through the mouth, and advanced to the second part of duodenum. The upper EUS was accomplished without difficulty. The patient tolerated the procedure well. Findings: ENDOSONOGRAPHIC FINDING: : A small amount of hyperechoic material consistent with sludge was visualized endosonographically in the common bile duct. Endosonographic imaging in the common bile duct showed no stones. The maximum diameter of the duct was 5 mm. A hypoechoic lesion suggestive of a cyst was identified in the pancreatic head. It is not in obvious communication with the pancreatic duct. The lesion measured 6 mm by 6 mm in maximal cross-sectional diameter. There was a single compartment without septae. The outer wall of the lesion was not seen. There was no associated mass. There was no internal debris within the fluid-filled cavity. The pancreas appeared normal otherwise. Endosonographic imaging in the main pancreatic duct showed no abnormalities. There was no sign of significant endosonographic abnormality in the visualized portion of the liver. Estimated Blood Loss: Estimated blood loss: none. Complications: No immediate complications. Impression: - Hyperechoic material consistent with sludge was visualized endosonographically in the common bile duct. - A cystic lesion was seen in the pancreatic head. - There was no evidence of significant pathology in the visualized portion of the liver. - No specimens collected. Recommendation: - Discharge patient to home. - Resume previous diet. - Continue present medications. - Perform an ERCP today. - Patient has a contact number available for emergencies. The signs and symptoms of potential delayed complications were discussed with the patient. Return to normal activities tomorrow. Written discharge instructions were provided to the patient. Procedure Code(s): --- Professional --- 66241, Esophagogastroduodenos copy, flexible, transoral; with endoscopic ultrasound examination limited to the esophagus, stomach or duodenum, and adjacent structures Diagnosis Code(s): --- Professional --- K86.2, Cyst of pancreas R10.11, Right upper quadrant pain K83.8, Other specified diseases of biliary tract CPT copyright 2021 [employer]. All rights reserved. The codes documented in this report are preliminary and upon pecan mallow dipper review may be revised to meet current compliance requirements. Ирина Diaz MD 05/01/2024 3:18:14 PM This report has been signed electronically. Note Initiated On: 05/01/2024 1:54 PM Number of Addenda: [id number] [place] [address] [employer] 05/01/2024 1:54 PM PROCESS IMPROVEMENT CONSULTANT Ирина Diaz MD GI PROCEDURE ORDERAB LES Performing Organization Address City/State/[facility] Co de Phone Number [facility] [employer] from Last 3 Months Insurance Payer Benefit Plan / Group Subscriber ID Effective Dates Phone Address Type MEDICARE MANAGED CARE PLAN GENERIC MEDICARE ADV [employer] [place] COMPLETE MEDICARE ADV OUT OF [place] [id number] 2021-Pre sent [address] [place] [address] Medicare-Man aged Care [employer] [place] [employer] [place] [id number] 2021-Pre sent [address] [place] [address] Medicaid Managed Care Advance Directives * Full Code (Latest Code Status on File) Date Activated Date Inactivated Comments 05/01/2024 7:47 PM 05/02/2024 4:50 PM Care Teams Neuropsychiatrist Relationship Specialty Start Date End Date Nate Trujillo MD [address] [place] [id number] PCP - General Family Medicine 04/30/24
--- OUTSIDE RECORDS SUMMARY | 2024-06-20 08:16 | XMS_ITS | Referral Summary ---
Author Organization [facility] Address [address] [address] Care Team Providers Care Physical Laboratory Assistant Name Role Phone Nate Trujillo MD Primary Care Provider [phone] Source Comments [facility],non-owned Affiliates and Associated Physician Practices is amultiple site organization consisting of ambulatory clinics and hospital sitesin [place], [place], [place] and [place]. This disclosure is being madepursuant to the Care Everywhere program and may not contain all information available regarding this patient. Last updated 18.[facility] [employer] Encounters Date Type Department Care Team Description 05/01/2024 11:22 AM [employer] - 05/02/2024 3:40 PM [employer] Hospital Encounter [facility] 6N ACUTE [address] [place] [address] Ирина Diaz MD Felgenhauer, Joshua, MD Arshad, Iqra, MD Surgery General Discharge Disposition: Home or Self Care 05/01/2024 Travel 05/01/2024 2:12 PM [employer] Anesthesia Event [facility] ENDOSCOPY [address] [place] [address] Sky Dye MD McGee, Jeffrey, Anes Asst 05/01/2024 1:00 PM [employer] - 05/01/2024 2:30 PM [employer] Surgery [facility] ENDOSCOPY [address] [place] [address] Ирина Diaz MD EGD / EUS +/- ERCP 04/30/2024 Telephone [facility] - GI [address] [facility], [place] [id number] Wu Del Rosario RN Procedure (EGD + EUS +/- ERCP for cholelithiasis from Dr Diaz for patient seen in his clinic) 04/30/2024 Travel 04/30/2024 9:30 AM [employer] Office Visit [facility] - [place] [address] [place] [phone] Ирина Diaz MD RUQ pain (Primary Dx); Colon adenocarcinoma (HCC); Family history of colon cancer in father; Hx of cholecystectomy 04/10/2024 Travel from Last 3 Months Allergies Active Allergy Reactions Criticality Noted Date [...] ied complication status, unspecified pancreatitis type 05/01/2024 Social History Tobacco Use Types Packs/Day Years [...] Comments Blood Pressure 174/79 05/02/2024 11:12 AM [employer] Pulse 59 05/02/2024 10:53 AM [employer] Temperature 36.9 C (98.4 F) 05/02/2024 10:53 AM [employer] Respiratory Rate 16 05/02/2024 10:53 AM [employer] Oxygen Saturation 99% 05/02/2024 10:53 AM [employer] Inhaled Oxygen Concentration - - Weight 96.2 kg (212 lb) 05/01/2024 7:27 PM [employer] Height 185.4 cm (6' 1 ) 05/01/2024 7:27 PM [employer] Body Mass Index 27.97 05/01/2024 7:27 PM [employer] Functional Status Functional Status Response Date of Assess ment Is person deaf or have serious hearing difficult y? No 05/01/2024 Is person blind or have serious difficulty seein g? No 05/01/2024 Does person have serious dif ficulty walking/climbing stairs? No 05/01/2024 Does person have difficulty dressing/bathing? No 05/01/2024 Does person have difficulty doing errands alone? No 05/01/2024 Cognitive Status Response Date of Assessm ent Does person have difficulty concentrating/remembering/making decisions? No 05/01/2024 Plan of Treatment Upcoming Encounters Date Type Department Care Team (Late st Contact Info) Description 10/29/2024 9:30 AM CDT Office [place] [facility] [place] [address] [place] [address], [facility] [place] [address] Ирина Diaz MD [facility] [place] [address] Goals Goal Patient Goal Type Associated Problems Recent Progress Patient-Stated? Author Medication Management General On track( 024 9:03 AM [employer]) No Joaquin Barahona, JOLYNN Note: Expected end date: ongoing Interventions: Take all medications as prescribed Let your doctor know right away about any changes in your medications Make sure to request a refill of your medication at least one week prior to your last dose Procedures Procedure Name Priority Date/Time Associated Diagnosis Comments GLUCOSE - POINT OF CARE Routine 05/02/2024 10:53 AM [employer] GLUCOSE - POINT OF CARE Routine 05/02/2024 7:32 AM [employer] PT EVAL AND TREAT Routine 05/02/2024 7:1 7 AM [employer] OT EVAL AND TREAT Routine 05/02/2024 7:1 7 AM [employer] PHOSPHORUS BLOOD Routine 05/02/2024 4:26 AM [employer] Chronic pancreatitis, unspecified pancreatitis type (HCC) MAGNESIUM BLOOD Routine 05/02/2024 4:26 AM [employer] Chronic pancreatitis, unspecified pancreatitis type (HCC) COMPREHENSIVE METABOLIC PANEL Routine 05/02/2024 4:26 AM [employer] Chronic pancreatitis, unspecified pancreatitis type (HCC) CBC W AUTO DIFFERENTIAL Routine 05/02/2024 4:26 AM [employer] Chronic pancreatitis, unspecified pancreatitis type (HCC) GLUCOSE - POINT OF CARE Routine 05/01/2024 9:33 PM [employer] PHOSPHORUS BLOOD Routine 05/01/2024 8:41 PM [employer] Chronic pancreatitis, unspecified pancreatitis type (HCC) MAGNESIUM BLOOD Routine 05/01/2024 8:41 PM [employer] Chronic pancreatitis, unspecified pancreatitis type (HCC) LIPASE BLOOD Routine 05/01/2024 8:41 PM [employer] Chronic pancreatitis, unspecified pancreatitis type (HCC) HEMOGLOBIN A1C Routine 05/01/2024 8:41 PM [employer] Type 2 diabetes mellitus without complication, without long-term current use of insulin (HCC) COMPREHENSIVE METABOLIC PANEL Routine 05/01/2024 8:41 PM [employer] Chronic pancreatitis, unspecified pancreatitis type (HCC) CBC W AUTO DIFFERENTIAL Routine 05/01/2024 8:41 PM [employer] Chronic pancreatitis, unspecified pancreatitis type (HCC) ERCP Routine 05/01/2024 2:38 PM [employer] PATHOLOGY TISSUE Routine 05/01/2024 2:21 PM [employer] Cholecystitis MT ERCP DX W BRUSH WASH WHEN PERF 05/01/2024 2:08 PM [employer] Cholecystitis MT ENDOSCOPIC ULTRASOUND EXAM 05/01/2024 2:08 PM [employer] Cholecystitis EGD Routine 05/01/2024 1:56 PM [employer] ENDOSCOPIC ULTRASONOGRAPHY, GI Routine 05/01/2024 1:54 PM [employer] GLUCOSE - POINT OF CARE Routine 05/01/2024 12:54 PM [employer] from Last 3 Months Results * (ABNORMAL) GLUCOSE - POINT OF CARE (05/02/2024 10:53 AM [employer]) Only the most recent of4 resultswithin the time period is included. [facility] Glucose WB/POC 149(H) 70 - 99 mg/dL 05/02/2024 11:05 AM [facility] Specimen Type Cap Fingerstick 2023 11:[address] [facility] Blood BLOOD SPECIMEN / Unknown 05/02/2024 10:53 AM [employer] 05/02/2024 11:05 AM [employer] Sharon Valentine MD LAB - POINT OF CARE ORDERABLES Performing Organization Address City/State/[facility] Co de Phone Number [facility] [address] [place] [address], [facility] [phone] * (ABNORMAL) CBC W AUTO DIFFERENTIAL (05/02/2024 4:26 AM [employer]) Only the most recent of2 resultswithin the time period is included. [facility] WBC 6.1 4.0 - 10.7 x10E9/L 05/02/2024 5:[address] [facility] RBC Count 5.32 4.30 - 5.80 x10E12/L 05/02/2024 5:[address] [facility] Hemoglobin 15.0 13.3 - 17.5 g/dL 05/02/2024 5:[address] [facility] Hematocrit 43.2 38.7 - 51.1 % 05/02/2024 5:[address] [facility] MCV 81.2 80.0 - 98.0 fL 05/02/2024 5:[address] [facility] MCH 28.2 26.7 - 33.6 pg 05/02/2024 5:[address] [facility] MCHC 34.7 31.7 - 36.3 g/dL 05/02/2024 5:[address] [facility] RDW-CV 12.1 11.3 - 14.8 % 05/02/2024 5:[address] [facility] Platelet Count 181 150 - 420 x10E9/L 05/02/2024 5:[address] [facility] MPV 12.4(H) 7.8 - 11.4 fL 05/02/2024 5:[address] [facility] Neutrophil % 64.1 41.0 - 74.0 % 05/02/2024 5:[address] [facility] Lymphocyte % 20.2 17.0 - 47.0 % 05/02/2024 5:[address] [facility] Monocyte % 11.1(H) 3.0 - 11.0 % 05/02/2024 5:[address] [facility] Eosinophil % 3.6 0.0 - 7.0 % 05/02/2024 5:[address] [facility] Basophil % 0.8 0.0 - 1.6 % 05/02/2024 5:[address] [facility] Immature Granulocytes % 0.2 0.0 - 1.0 % 05/02/2024 5:[address] [facility] Neutrophil Absolute 3.93 1.60 - 7.50 x10E9/L 05/02/2024 5:[address] [facility] Lymphocyte Absolute 1.24 1.00 - 4.40 x10E9/L 05/02/2024 5:[address] [facility] Monocyte Absolute 0.68 0.15 - 1.00 x10E9/L 05/02/2024 5:[address] [facility] Eosinophil Absolute 0.22 0.00 - 0.60 x10E9/L 05/02/2024 5:[address] [facility] Basophil Absolute 0.05 0.00 - 0.13 x10E9/L 05/02/2024 5:[address] [facility] Blood BLOOD SPECIMEN / Unknown Lab Venipuncture / Unknown 05/02/2024 4:26 AM [employer] 05/02/2024 5:05 AM [facility] Chapincito Cummings MD LAB - HEMATOLOGY O RDERABLES Performing Organization Address [facility]/State/ZIP Co de Phone Number [facility] [address] [place] [address], [facility] [phone] * (ABNORMAL) COMPREHENSIVE METABOLIC PANEL (05/02/2024 4:26 AM [facility]) Only the most recent of2 resultswithin the time period is included. BUN 10 7 - 26 mg/dL 05/02/2024 5:[address] [facility] Creatinine 0.80 0.71 - 1.16 mg/dL 05/02/2024 5:[address] [facility] Sodium 134(L) 136 - 145 mmol/L 05/02/2024 5:[address] [facility] Potassium 3.7 3.5 - 4.5 mmol/L 05/02/2024 5:[address] [facility] Chloride 108(H) 98 - 107 mmol/L 05/02/2024 5:[address] [facility] CO2 23 22 - 29 mmol/L 05/02/2024 5:[address] [facility] Glucose 125(H) 70 - 99 mg/dL 05/02/2024 5:[address] [facility] Calcium 9.2 8.4 - 10.2 mg/dL 05/02/2024 5:[address] [facility] Protein Total 6.4 6.0 - 8.3 g/dL 05/02/2024 5:[address] [facility] Albumin 3.6 3.4 - 5.0 g/dL 05/02/2024 5:[address] [facility] Bilirubin Total 0.9 0.2 - 1.2 mg/dL 05/02/2024 5:[address] [facility] Alkaline Phosphatase 83 40 - 150 U/L 05/02/2024 5:[address] [facility] ALT 34 5 - 55 U/L 05/02/2024 5:[address] [facility] AST 34 5 - 34 U/L 05/02/2024 5:[address] [facility] Anion Gap 3(L) 6 - 16 05/02/2024 5:[address] [facility] BUN/Creatinine Ratio 13 7 - 23 05/02/2024 5:[address] [facility] Osmolality Calculated 279 275 - 295 mOsm/kg 05/02/2024 5:[address] [facility] Albumin/Globulin Ratio 1.3 1.1 - 2.3 05/02/2024 5:[address] [facility] eGFR by CKD-EPI >90 >=90 mL/min/1.7 3 m2 05/02/2024 5:[address] [facility] Blood BLOOD SPECIMEN / Unknown Lab Venipuncture / Unknown 05/02/2024 4:26 AM [employer] 05/02/2024 5:05 AM [employer] Chapincito Cummings MD LAB - CHEMISTRY OR DERABLES [address] [address], [facility] [phone] * PHOSPHORUS BLOOD (05/02/2024 4:26 AM [employer]) Only the most recent of2 resultswithin the time period is included. Phosphorus 3.6 2.8 - 5.1 mg/dL 05/02/2024 5:[address] [facility] Blood BLOOD SPECIMEN / Unknown Lab Venipuncture / Unknown 05/02/2024 4:26 AM [employer] 05/02/2024 5:05 AM [employer] Chapincito Cummings MD LAB - CHEMISTRY OR DERABLES [address] [address], [facility] [phone] * MAGNESIUM BLOOD (05/02/2024 4:26 AM [employer]) Only the most recent of2 resultswithin the time period is included. Magnesium 2.0 1.6 - 2.6 mg/dL 05/02/2024 5:[address] [facility] Blood BLOOD SPECIMEN / Unknown Lab Venipuncture / Unknown 05/02/2024 4:26 AM [employer] 05/02/2024 5:05 AM [employer] Chapincito Cummings MD LAB - CHEMISTRY OR DERABLES Performing Organization Address City/[facility]/ZIP Co de Phone Number [address] [address], [facility] [phone] * (ABNORMAL) HEMOGLOBIN A1C (05/01/2024 8:41 PM [employer]) Hemoglobin A1c 6.6(H) <=5.6 % 05/02/2024 8:[address] [facility] Estimated Average Glucose 143 mg/dL 05/02/2024 8:[address] [facility] Comment: HbA1c Interpretation: Normal : < 5.7% Pre-diabetes: 5.7-6.4% Diabetes: Equal to or greater than 6.5% Test results diagnostic of diabetes should be repeated for confirmation. Treatment target values recommended by ADA and other clinical organizations should be used to evaluate metabolic control in patients. Reference: [place] [employer], Standards of Care in Diabetes -2020 In patients 70 years and older consider HbA1c target range of 7.0-7.5% (Reference: Eusebio José et al. JAMDA. 2012) The Sebia assay for the measurement of HbA1c is a National Glycohemoglobin Standardization Program (NGSP) certified method. Blood BLOOD SPECIMEN / Unknown Lab Venipuncture / Unknown 05/01/2024 8:41 PM [employer] 05/01/2024 8:46 PM [employer] Chapincito Cummings MD LAB - CHEMISTRY OR DERABLES Performing Organization Address City/[facility]/ZIP Co de Phone Number [address] [address], [facility] [phone] * LIPASE BLOOD (05/01/2024 8:41 PM [employer]) Lipase 10 8 - 78 U/L 05/01/2024 9:[address] [facility] Blood BLOOD SPECIMEN / Unknown Lab Venipuncture / Unknown 05/01/2024 8:41 PM [employer] 05/01/2024 8:47 PM [employer] Narrative [facility] - 05/01/2024 9:15 PM [employer] Lipase results from the Alejandro Alinity analyzer may not be comparable with other methodologies. Chapincito Cummings MD LAB - CHEMISTRY OR DERABLES Performing Organization Address City/State/[facility] Co de Phone Number [facility] [address] [place] [phone], [facility] [phone] * ERCP (05/01/2024 2:38 PM [employer]) Report Endoscopy POC Endoscopy Department Report _ Patient Name: Silvio Muir Procedure Date: 05/01/2024 2:38 PM Date of : 1960 Classification: Outpatient Gender: Male Ethnicity: Unknown Race: Unknown _ Providers: Ирина Diaz MD Referring MD: Asad Waldrop MD Procedure: ERCP Indications: Common bile duct sludge Medications: Monitored Anesthesia Care, Indomethacin 100 mg MT Description of Procedure: Pre-Anesthesia Assessment: - Prior [...] patient tolerated the procedure well. Findings: A harp regulator film of the abdomen was obtained. Surgical [...] the patient/caregiver. Procedure Code(s): --- Professional --- 80590, Endoscopic retrograde cholangiopancreatography (ERCP); with removal of calculi/debris from biliary/pancreatic duct(s) 92667, Endoscopic retrograde cholangiopancreatography (ERCP); with sphincterotomy/[place] [address], Endoscopic catheterization of the biliary ductal system, radiological supervision and interpretation Diagnosis Code(s): --- Professional --- K80.50, Calculus of bile duct without cholangitis or cholecystitis without obstruction CPT copyright 2021 [employer]. All rights reserved. The codes documented in this report are preliminary and upon travel counselor review may be revised to meet current compliance requirements. Ирина Diaz MD 05/01/2024 3:32:12 PM This report has been signed electronically. Note Initiated On: 05/01/2024 2:38 PM Number of Addenda: [id number] [place] [address] PROVATION 05/01/2024 2:38 PM [employer] Ирина Diaz MD GI PROCEDURE ORDERAB LES [facility] PROVATION * PATHOLOGY TISSUE (05/01/2024 2:21 PM [employer]) Case Report Surgical Pathology Report Case: [id number] Authorizing Provider: Ирина Diaz MD Collected: 05/01/2024 02:21 PM Ordering Location: [facility] ENDOSCOPY Received: 05/01/2024 03:27 PM Pathologist: Tona De Los Santos MD Specimen: Gastric, Biopsy - R/O H pylori 05/02/2024 10:35 AM [employer] [facility] PATHOLOGY LAB Final Diagnosis Stomach, biopsy (A): - No histopathologic abnormality - No granulomas or dysplasia 05/02/2024 10:35 AM [employer] [facility] PATHOLOGY LAB Microscopic Description and Comment Microscopic examination substantiates the final diagnosis. 05/02/2024 10:[address] [facility] PATHOLOGY LAB Clinical History The patient is a 63-year-old man with abdominal pain in the right upper quadrant. Operative procedure/findings: EGD - erythematous mucosa in the pylorus, biopsy to rule out H. pylori 05/02/2024 10:[address] [facility] PATHOLOGY LAB Gross Description The requisition and specimen(s) are identified with the patient's name, Silvio Muir. Received in formalin, specimen A , consists of 2 fairbanks-pink tissue fragments, 0.2-0.3 cm in greatest dimension and 0.5 x 0.2 x 0.1 cm in aggregate. The specimen is submitted in toto in cassette A1. MB 05/02/2024 10:[address] [facility] PATHOLOGY LAB Pathologist Location at [facility] 05/02/2024 10:[address] [facility] PATHOLOGY LAB Disclaimer The performance characteristics of all immunohistochemical and indirect immunofluorescence stains (if any) cited in this report were determined by the Histopathology Laboratory of [facility]. Some of these tests were developed by [...] the attending (teaching) pathologist. 05/02/2024 10:[address] [facility] PATHOLOGY LAB Embedded Images 05/02/2024 10:[address] [facility] PATHOLOGY LAB Biopsy, NOS GASTRIC CONTENTS SPECIMEN / Unknown 05/01/2024 2:21 PM [employer] 05/01/2024 3:27 PM [employer] Ирина Diaz MD LAB - PATHOLOGY/CYTO LOGY ORDERABLES [facility] PATHOLOGY LAB [address] [place] [address], [facility] [phone] * EGD (05/01/2024 1:56 PM [employer]) Report Endoscopy POC Endoscopy Department Report _ [...] the patient. Procedure Code(s): --- Professional --- 39182, Esophagogastroduo denoscopy, flexible, transoral; with biopsy, single or multiple Diagnosis Code(s): --- Professional --- K44.9, Diaphragmatic hernia without obstruction or gangrene K31.89, Other diseases of stomach and duodenum R10.11, Right upper quadrant pain CPT copyright 2021 [employer]. All rights reserved. The codes documented in this report are preliminary and upon travel counselor review may be revised to meet current compliance requirements. Ирина Diaz MD 05/01/2024 3:11:41 PM This report has been signed electronically. Note Initiated On: 05/01/2024 1:56 PM Number of Addenda: [address] [phone] [facility] PROVATION 05/01/2024 1:56 PM [employer] Ирина Diaz MD GI PROCEDURE ORDERAB LES [facility] PROVATION * ENDOSCOPIC ULTRASONOGRAPHY, GI (05/01/2024 1:54 PM [employer]) Report Endoscopy POC Endoscopy Department Report _ [...] and oxygen saturations were monitored continuously. The [id number] was introduced through the mouth, and advanced [...] the patient. Procedure Code(s): --- Professional --- 08577, Esophagogastroduodenos copy, flexible, transoral; with endoscopic ultrasound examination limited to the esophagus, stomach or duodenum, and adjacent structures Diagnosis Code(s): --- Professional --- K86.2, Cyst of pancreas R10.11, Right upper quadrant pain K83.8, Other specified diseases of biliary tract CPT copyright 2021 [employer]. All rights reserved. The codes documented in this report are preliminary and upon travel counselor review may be revised to meet current compliance requirements. Ирина Diaz MD 05/01/2024 3:18:14 PM This report has been signed electronically. Note Initiated On: 05/01/2024 1:54 PM Number of Addenda: [phone] [place] [address] PROVVIVI 05/01/2024 1:54 PM [employer] Ирина Diaz MD GI PROCEDURE ORDERAB LES [facility] RANDAL from Last 3 Months Insurance Payer Benefit Plan / Group Subscriber ID Effective Dates Phone Address Type MEDICARE MANAGED CARE PLAN GENERIC MEDICARE ADV [place] COM[employer]TE MEDICARE ADV OUT OF [place] [id number] 2021-Pre sent [phone] [address] [place] [address] Medicare-Man aged Care [employer] [place] [employer] [id number] 2021-Pre sent [address] [place] [address] Medicaid Managed Care Advance Directives * Full Code (Latest Code Status on File) Date Activated Date Inactivated Comments 05/01/2024 7:47 PM 05/02/2024 4:50 PM Care Teams Physical Laboratory Assistant Relationship Specialty Start Date End Date Nate Trujillo MD [address] [place] [address] PCP - General Family Medicine 04/30/24
--- OUTSIDE RECORDS SUMMARY | 2024-06-20 08:16 | XMS_ITS | Patient Health Summary ---
Author Organization [facility] Address [address] [place] [address] Care Team Providers Care Executive Asst Name Role Phone Nate Trujillo MD Primary Care Provider [phone] Note from [facility],non-owned Affiliates and Associated Physician Practices is amultiple site organization consisting of ambulatory clinics and hospital sitesin [place], [place], [place] and [place]. This disclosure is being madepursuant to the Care Everywhere program and may not contain all information available regarding this patient. Last updated 18.[facility] Allergies * Clindamycin(Itching,Rash) -Medium Criticality Medications * Be aware that medications may not be up to date on this document. Alwaysverify current medications with the patient. * Blood Glucose Monitoring Suppl (ONE TOUCH ULTRA 2) w/Device KIT(Started 09/04/2023) * dicyclomine (Bentyl) 20 MG tablet(Started 03/27/2024) Take 1 (one) tablet by mouth 3 times daily * Docusate Sodium (DSS) 100 MG Take 1 capsule by mouth once daily * glimepiride (Amaryl) 2 MG tablet Take 1 (one) tablet by mouth daily with breakfast * OneTouch Ultra test strip(Started 09/04/2023) 1 (one) strip as directed * Lancets (ONETOUCH DELICA PLUS 33G EXTRA FINE LANCET)(Started 09/04/2023) * traMADol (Ultram) 50 MG tablet(Started 05/02/2024) Take 1 (one) tablet by mouth 3 times daily as needed for Pain Active Problems Problem Noted Date Diagnosed Date [...] Comments Blood Pressure 174/79 05/02/2024 11:12 AM DISH STACKER Pulse 59 05/02/2024 10:53 AM DISH STACKER Temperature 36.9 C (98.4 F) 05/02/2024 10:53 AM DISH STACKER Respiratory Rate 16 05/02/2024 10:53 AM DISH STACKER Oxygen Saturation 99% 05/02/2024 10:53 AM DISH STACKER Inhaled Oxygen Concentration - - Weight 96.2 kg (212 lb) 05/01/2024 7:27 PM DISH STACKER Height 185.4 cm (6' 1 ) 05/01/2024 7:27 PM DISH STACKER Body Mass Index 27.97 05/01/2024 7:27 PM DISH STACKER Procedures * GLUCOSE - POINT OF CARE(Performed 05/02/2024) * GLUCOSE - POINT OF CARE(Performed 05/02/2024) * PT EVAL AND TREAT(Performed 05/02/2024) * OT EVAL AND TREAT(Performed 05/02/2024) * PHOSPHORUS BLOOD(Performed 05/02/2024) Performed for Chronic pancreatitis, unspecified pancreatitis type (HCC) * MAGNESIUM BLOOD(Performed 05/02/2024) Performed for Chronic pancreatitis, unspecified pancreatitis type (HCC) * COMPREHENSIVE METABOLIC PANEL(Performed 05/02/2024) Performed for Chronic pancreatitis, unspecified pancreatitis type (HCC) * CBC W AUTO DIFFERENTIAL(Performed 05/02/2024) Performed for Chronic pancreatitis, unspecified pancreatitis type (HCC) * GLUCOSE - POINT OF CARE(Performed 05/01/2024) * PHOSPHORUS BLOOD(Performed 05/01/2024) Performed for Chronic pancreatitis, unspecified pancreatitis type (HCC) * MAGNESIUM BLOOD(Performed 05/01/2024) Performed for Chronic pancreatitis, unspecified pancreatitis type (HCC) * LIPASE BLOOD(Performed 05/01/2024) Performed for Chronic pancreatitis, unspecified pancreatitis type (HCC) * HEMOGLOBIN A1C(Performed 05/01/2024) Performed for Type 2 diabetes mellitus without complication, without long-term current use of insulin (HCC) * COMPREHENSIVE METABOLIC PANEL(Performed 05/01/2024) Performed for Chronic pancreatitis, unspecified pancreatitis type (HCC) * CBC W AUTO DIFFERENTIAL(Performed 05/01/2024) Performed for Chronic pancreatitis, unspecified pancreatitis type (HCC) * ERCP(Performed 05/01/2024) * PATHOLOGY TISSUE(Performed 05/01/2024) Performed for Cholecystitis * VT ERCP DX W BRUSH WASH WHEN PERF(Performed 05/01/2024) Performed for Cholecystitis * VT ENDOSCOPIC ULTRASOUND EXAM(Performed 05/01/2024) Performed for Cholecystitis * EGD(Performed 05/01/2024) * ENDOSCOPIC ULTRASONOGRAPHY, GI(Performed 05/01/2024) * GLUCOSE - POINT OF CARE(Performed 05/01/2024) Results * (ABNORMAL) GLUCOSE - POINT OF CARE (05/02/2024 10:53 AM DISH STACKER) Only the most recent of4 resultswithin the time period is included. [facility] Glucose WB/POC 149(H) 70 - 99 mg/dL 05/02/2024 11:05 AM [facility] Specimen Type Cap Fingerstick 2023 11:05 AM DISH STACKER [facility] Blood BLOOD SPECIMEN / Unknown 05/02/2024 10:53 AM DISH STACKER 05/02/2024 11:05 AM DISH STACKER Sharon Valentine MD LAB - POINT OF CARE ORDERABLES [facility] [address] [place] [id number], [facility] [phone] * (ABNORMAL) CBC W AUTO DIFFERENTIAL (05/02/2024 4:26 AM DISH STACKER) Only the most recent of2 resultswithin the time period is included. [facility] WBC 6.1 4.0 - 10.7 x10E9/L 05/02/2024 5:15 AM DISH STACKER [facility] RBC Count 5.32 4.30 - 5.80 x10E12/L 05/02/2024 5:15 AM [facility] Hemoglobin 15.0 13.3 - 17.5 g/dL 05/02/2024 5:15 AM [facility] Hematocrit 43.2 38.7 - 51.1 % 05/02/2024 5:15 AM [facility] MCV 81.2 80.0 - 98.0 fL 05/02/2024 5:15 AM [facility] MCH 28.2 26.7 - 33.6 pg 05/02/2024 5:15 AM [facility] MCHC 34.7 31.7 - 36.3 g/dL 05/02/2024 5:15 AM [facility] RDW-CV 12.1 11.3 - 14.8 % 05/02/2024 5:15 AM [facility] Platelet Count 181 150 - 420 x10E9/L 05/02/2024 5:15 AM [facility] MPV 12.4(H) 7.8 - 11.4 fL 05/02/2024 5:15 AM [facility] Neutrophil % 64.1 41.0 - 74.0 % 05/02/2024 5:15 AM [facility] Lymphocyte % 20.2 17.0 - 47.0 % 05/02/2024 5:15 AM [facility] Monocyte % 11.1(H) 3.0 - 11.0 % 05/02/2024 5:15 AM [facility] Eosinophil % 3.6 0.0 - 7.0 % 05/02/2024 5:15 AM [facility] Basophil % 0.8 0.0 - 1.6 % 05/02/2024 5:15 AM [facility] Immature Granulocytes % 0.2 0.0 - 1.0 % 05/02/2024 5:15 AM [facility] Neutrophil Absolute 3.93 1.60 - 7.50 x10E9/L 05/02/2024 5:15 AM [facility] Lymphocyte Absolute 1.24 1.00 - 4.40 x10E9/L 05/02/2024 5:15 AM [facility] Monocyte Absolute 0.68 0.15 - 1.00 x10E9/L 05/02/2024 5:15 AM [facility] Eosinophil Absolute 0.22 0.00 - 0.60 x10E9/L 05/02/2024 5:15 AM [facility] Basophil Absolute 0.05 0.00 - 0.13 x10E9/L 05/02/2024 5:15 AM [facility] Blood BLOOD SPECIMEN / Unknown Lab Venipuncture / Unknown 05/02/2024 4:26 AM DISH STACKER 05/02/2024 5:05 AM [facility] Chapincito Cummings MD LAB - HEMATOLOGY O RDERABLES [facility] [address] [place] [address], [facility] [phone] * (ABNORMAL) COMPREHENSIVE METABOLIC PANEL (05/02/2024 4:26 AM [facility]) Only the most recent of2 resultswithin the time period is included. BUN 10 7 - 26 mg/dL 05/02/2024 5:34 AM [facility] Creatinine 0.80 0.71 - 1.16 mg/dL 05/02/2024 5:34 AM [facility] Sodium 134(L) 136 - 145 mmol/L 05/02/2024 5:34 AM [facility] Potassium 3.7 3.5 - 4.5 mmol/L 05/02/2024 5:34 AM [facility] Chloride 108(H) 98 - 107 mmol/L 05/02/2024 5:34 AM [facility] CO2 23 22 - 29 mmol/L 05/02/2024 5:34 AM [facility] Glucose 125(H) 70 - 99 mg/dL 05/02/2024 5:34 AM [facility] Calcium 9.2 8.4 - 10.2 mg/dL 05/02/2024 5:34 AM [facility] Protein Total 6.4 6.0 - 8.3 g/dL 05/02/2024 5:34 AM [facility] Albumin 3.6 3.4 - 5.0 g/dL 05/02/2024 5:34 AM [facility] Bilirubin Total 0.9 0.2 - 1.2 mg/dL 05/02/2024 5:34 AM [facility] Alkaline Phosphatase 83 40 - 150 U/L 05/02/2024 5:34 AM [facility] ALT 34 5 - 55 U/L 05/02/2024 5:34 AM [facility] AST 34 5 - 34 U/L 05/02/2024 5:34 AM [facility] Anion Gap 3(L) 6 - 16 05/02/2024 5:34 AM [facility] BUN/Creatinine Ratio 13 7 - 23 05/02/2024 5:34 AM [facility] Osmolality Calculated 279 275 - 295 mOsm/kg 05/02/2024 5:34 AM [facility] Albumin/Globulin Ratio 1.3 1.1 - 2.3 05/02/2024 5:34 AM [facility] eGFR by CKD-EPI >90 >=90 mL/min/1.7 3 m2 05/02/2024 5:34 AM [facility] Blood BLOOD SPECIMEN / Unknown Lab Venipuncture / Unknown 05/02/2024 4:26 AM DISH STACKER 05/02/2024 5:05 AM DISH STACKER Chapincito Cummings MD LAB - CHEMISTRY OR DERABLES [address] [address], [facility] [phone] * PHOSPHORUS BLOOD (05/02/2024 4:26 AM DISH STACKER) Only the most recent of2 resultswithin the time period is included. Phosphorus 3.6 2.8 - 5.1 mg/dL 05/02/2024 5:34 AM [facility] Blood BLOOD SPECIMEN / Unknown Lab Venipuncture / Unknown 05/02/2024 4:26 AM DISH STACKER 05/02/2024 5:05 AM DISH STACKER Chapincito Cummings MD LAB - CHEMISTRY OR DERABLES [address] [address], [facility] [phone] * MAGNESIUM BLOOD (05/02/2024 4:26 AM DISH STACKER) Only the most recent of2 resultswithin the time period is included. Magnesium 2.0 1.6 - 2.6 mg/dL 05/02/2024 5:34 AM [facility] Blood BLOOD SPECIMEN / Unknown Lab Venipuncture / Unknown 05/02/2024 4:26 AM DISH STACKER 05/02/2024 5:05 AM DISH STACKER Chapincito Cummings MD LAB - CHEMISTRY OR DERABLES Performing Organization Address City/[facility]/ZIP Co de Phone Number [facility] [address] [place] [address], [facility] [phone] * (ABNORMAL) HEMOGLOBIN A1C (05/01/2024 8:41 PM DISH STACKER) Hemoglobin A1c 6.6(H) <=5.6 % 05/02/2024 8:24 AM [facility] Estimated Average Glucose 143 mg/dL 05/02/2024 8:24 AM [facility] Comment: HbA1c Interpretation: Normal : < 5.7% Pre-diabetes: 5.7-6.4% Diabetes: Equal to or greater than 6.5% Test results diagnostic of diabetes should be repeated for confirmation. Treatment target values recommended by ADA and other clinical organizations should be used to evaluate metabolic control in patients. Reference: [place] [employer], Standards of Care in Diabetes -2020 In patients 70 years and older consider HbA1c target range of 7.0-7.5% (Reference: Eusebio José et al. JAMDA. 2012) The Sebia assay for the measurement of HbA1c is a National Glycohemoglobin Standardization Program (NGSP) certified method. Blood BLOOD SPECIMEN / Unknown Lab Venipuncture / Unknown 05/01/2024 8:41 PM DISH STACKER 05/01/2024 8:46 PM DISH STACKER Chapincito Cummings MD LAB - CHEMISTRY OR DERABLES Performing Organization Address City/[facility]/ZIP Co de Phone Number [facility] [address] [place] [address], [facility] [phone] * LIPASE BLOOD (05/01/2024 8:41 PM DISH STACKER) Lipase 10 8 - 78 U/L 05/01/2024 9:15 PM DISH STACKER [facility] Blood BLOOD SPECIMEN / Unknown Lab Venipuncture / Unknown 05/01/2024 8:41 PM DISH STACKER 05/01/2024 8:47 PM DISH STACKER Narrative [facility] - 05/01/2024 9:15 PM DISH STACKER Lipase results from the Alejandro Alinity analyzer may not be comparable with other methodologies. Chapincito Cummings MD LAB - CHEMISTRY OR DERABLES [address] [address], [facility] [phone] * ERCP (05/01/2024 2:38 PM DISH STACKER) Report Endoscopy POC Endoscopy Department Report _ Patient Name: Silvio Muir Procedure Date: 05/01/2024 2:38 PM Date of : 1960 Classification: Outpatient Gender: Male Ethnicity: Unknown Race: Unknown _ Providers: Ирина Diaz MD Referring MD: Asad Waldrop MD Procedure: ERCP Indications: Common bile duct sludge Medications: Monitored Anesthesia Care, Indomethacin 100 mg VT Description of Procedure: Pre-Anesthesia Assessment: - Prior [...] patient tolerated the procedure well. Findings: A shank stitcher film of the abdomen was obtained. Surgical [...] the patient/caregiver. Procedure Code(s): --- Professional --- 86276, Endoscopic retrograde cholangiopancreatography (ERCP); with removal of calculi/debris from biliary/pancreatic duct(s) 05933, Endoscopic retrograde cholangiopancreatography (ERCP); with sphincterotomy/[place] 44636, Endoscopic catheterization of the biliary ductal system, radiological supervision and interpretation Diagnosis Code(s): --- Professional --- K80.50, Calculus of bile duct without cholangitis or cholecystitis without obstruction CPT copyright 2021 [place] [employer]. All rights reserved. The codes documented in this report are preliminary and upon medical lab scientist review may be revised to meet current compliance requirements. Ирина Diaz MD 05/01/2024 3:32:12 PM This report has been signed electronically. Note Initiated On: 05/01/2024 2:38 PM Number of Addenda: [address] [employer]OVATION 05/01/2024 2:38 PM DISH STACKER Ирина Diaz MD GI PROCEDURE ORDERAB LES [facility] PROVATION * PATHOLOGY TISSUE (05/01/2024 2:21 PM DISH STACKER) Case Report Surgical Pathology Report Case: [id number] Authorizing Provider: Ирина Diaz MD Collected: 05/01/2024 02:21 PM Ordering Location: [facility] ENDOSCOPY Received: 05/01/2024 03:27 PM Pathologist: Tona De Los Santos MD Specimen: Gastric, Biopsy - R/O H pylori 05/02/2024 10:35 AM DISH STACKER [facility] Final Diagnosis Stomach, biopsy (A): - No histopathologic abnormality - No granulomas or dysplasia 05/02/2024 10:35 AM [facility] LAB Microscopic Description and Comment Microscopic examination substantiates the final diagnosis. 05/02/2024 10:35 AM [facility] Clinical History The patient is a 63-year-old man with abdominal pain in the right upper quadrant. Operative procedure/findings: EGD - erythematous mucosa in the pylorus, biopsy to rule out H. pylori 05/02/2024 10:35 AM [facility] PATH[facility] LAB Gross Description The requisition and specimen(s) are identified with the patient's name, Silvio Muir. Received in formalin, specimen A , consists of 2 fairbanks-pink tissue fragments, 0.2-0.3 cm in greatest dimension and 0.5 x 0.2 x 0.1 cm in aggregate. The specimen is submitted in toto in cassette A1. EDWARD 05/02/2024 10:35 AM [facility] PATHOLOGY LAB Pathologist Location at [facility] 05/02/2024 10:35 AM [facility] PATH[facility] LAB Disclaimer The performance characteristics of all immunohistochemical and indirect immunofluorescence stains (if any) cited in this report were determined by the Histopathology Laboratory of [facility]. Some of these tests were developed by [...] the attending (teaching) pathologist. 05/02/2024 10:35 AM [facility] PATH[facility] LAB Embedded Images 05/02/2024 10:35 AM [facility] PATH[facility]Y LAB Biopsy, NOS GASTRIC CONTENTS SPECIMEN / Unknown 05/01/2024 2:21 PM DISH STACKER 05/01/2024 3:27 PM DISH STACKER Ирина Diaz MD LAB - PATHOLOGY/CYTO LOGY ORDERABLES [facility] [address] [place] [address], [facility] [phone] * EGD (05/01/2024 1:56 PM DISH STACKER) Report Endoscopy POC Endoscopy Department Report _ [...] the patient. Procedure Code(s): --- Professional --- 52310, Esophagogastroduo denoscopy, flexible, transoral; with biopsy, single or multiple Diagnosis Code(s): --- Professional --- K44.9, Diaphragmatic hernia without obstruction or gangrene K31.89, Other diseases of stomach and duodenum R10.11, Right upper quadrant pain CPT copyright 2021 [place] [employer]. All rights reserved. The codes documented in this report are preliminary and upon medical lab scientist review may be revised to meet current compliance requirements. Ирина Diaz MD 05/01/2024 3:11:41 PM This report has been signed electronically. Note Initiated On: 05/01/2024 1:56 PM Number of Addenda: 0 [facility] [address] [place], [place] [id number] [place] [address] [employer]ATION 05/01/2024 1:56 PM DISH STACKER Ирина Diaz MD GI PROCEDURE ORDERAB LES [facility] [employer]OVATION * ENDOSCOPIC ULTRASONOGRAPHY, GI (05/01/2024 1:54 PM DISH STACKER) Report Endoscopy POC Endoscopy Department Report _ [...] and oxygen saturations were monitored continuously. The [id number] was introduced through the mouth, and advanced [...] the patient. Procedure Code(s): --- Professional --- 52729, Esophagogastroduodenos copy, flexible, transoral; with endoscopic ultrasound examination limited to the esophagus, stomach or duodenum, and adjacent structures Diagnosis Code(s): --- Professional --- K86.2, Cyst of pancreas R10.11, Right upper quadrant pain K83.8, Other specified diseases of biliary tract CPT copyright 2021 [place] [employer]. All rights reserved. The codes documented in this report are preliminary and upon medical lab scientist review may be revised to meet current compliance requirements. Ирина Diaz MD 05/01/2024 3:18:14 PM This report has been signed electronically. Note Initiated On: 05/01/2024 1:54 PM Number of Addenda: [address] [employer] 05/01/2024 1:54 PM DISH STACKER Ирина Diaz MD GI PROCEDURE ORDERAB LES [facility] Teams Executive Asst Relationship Specialty Start Date End Date Nate Trujillo MD [address] [place] [address] PCP - General Family Medicine 04/30/24
--- OUTSIDE RECORDS SUMMARY | 2024-06-20 08:16 | XMS_ITS ---
Author Organization Unknown Address [address] [place] [phone] Phone Care Team Providers Care Hvac Estimator Name Role Phone ALBARO Ty Attending Unavailable LELIA Lacy Primary Unavailable Immunization Immunization Date Status Additional Notes Code Code System Tdap 12/28/2019 Completed 115 CVX Results URINALYSIS w/Microscopy/C&S if indicated - Collect Date/Time: 01/24/2024 13:34 [facility] ID: [id number] [place] [address], [id number] LOINC: 81773-8 Test Value Unit Reference Range Code Code System Flag UR SOURCE VOIDED 25958-4 LOINC COLOR YELLOW YELLOW 5778-6 LOINC CLARITY CLEAR CLEAR 52949-2 LOINC SPEC GRAVITY >=1.030 1.000-1.030 5811-5 LOINC A PH 5.5 5.0 - 6.5 5803-2 LOINC LEUK EST NEGATIVE NEGATIVE 5799-2 LOINC NITRATE NEGATIVE NEGATIVE PROTEIN NEGATIVE NEGATIVE 5804-0 LOINC GLUCOSE 1+ NEGATIVE 97778-2 LOINC KETONES NEGATIVE NEGATIVE 88455-1 LOINC UROBILINOGEN 0.2 NEGATIVE 5818-0 LOINC BILIRUBIN NEGATIVE NEGATIVE 92365-2 LOINC BLOOD NEGATIVE NEGATIVE 95922-5 LOINC WBC 0-2 0 - 2 94956-2 LOINC RBC 0-2 0 - 2 36373-6 LOINC EPITHELIAL RARE RARE-FEW 32546-2 LOINC BACTERIA NONE SEEN NONE SEEN 82089-6 LOINC MUCUS FEW NONE SEEN 8247-9 LOINC YEAST NOT PRESENT NOT PRESENT 61854-9 LOINC CASTS NONE SEEN 80004-0 LOINC CRYSTALS NONE SEEN 12611-5 LOINC CULTURE? NO 8251-1 LOINC DIAGNOSIS N/A CBC W/ DIFF - Collect Date/T valente: 01/24/2024 12:45 [facility] ID: [id number] [address] [place], [place], [phone] LOINC: 03745-9 Test Value Unit Reference Range Code Code System Flag WBC 7.9 10^3uL L=4.8 H=10.8 RBC 5.93 10^6uL L=4.60 H=6.20 HEMOGLOBIN 16.5 g/dL L=14.0 H=18.0 718-7 LOINC HEMATOCRIT 49.3 VOL% L=42.0 H=52.0 4544-3 LOINC MCV 83.1 fL L=80.0 H=94.0 MCH 27.8 pg L=27.0 H=32.0 MCHC 33.5 g/dL L=32.0 H=36.0 PLATELETS 201 10^3uL L=100 H=400 51256-5 LOINC RDW 13.4 % L=11.7 H=15.5 %GRAN 64.8 % L=40.0 H=70.0 26011-9 LOINC %LYMPH 21.4 % L=20.0 H=45.0 736-9 LOINC %MONO 8.6 % L=2.0 H=10.0 12568-4 LOINC %EOS 3.8 % L=0.0 H=6.0 713-8 LOINC %BASO 1.1 % L=0.0 H=3.0 706-2 LOINC #NEUT 5.1 10^3uL L=1.9 H=7.6 86970-1 LOINC #LYMPH 1.7 10^3uL L=0.9 H=4.9 02696-3 LOINC #MONO 0.7 10^3uL L=0.1 H=0.9 54178-9 LOINC #EOS 0.3 10^3uL L=0.0 H=0.6 712-0 LOINC #BASO 0.09 10^3uL L=0.00 H=0.10 34581-7 LOINC #IM GRANS 0.0 10^3uL L=0.0 H=7.0 15398-4 LOINC %IM GRANS 0.3 % L=0.0 H=5.0 18322-2 LOINC %NRB 0.0 L=0.0 H=0.2 85745-5 LOINC #NRB 0.000 L=0.000 H=0.012 23397-5 LOINC MANUAL DIFF NOT INDICATED RBC MORPH NOT INDICATED COMPREHENSIVE METABOLIC PANE L - Collect Date/Time: 01/24/2024 12:45 [facility] ID: [id number] [address] [place], [place], [phone] LOINC: 28009-4 Test Value Unit Reference Range Code Code System Flag FASTING UNKNOWN BUN 17 mg/dL L=7 H=20 3094-0 LOINC CREATININE 0.90 mg/dL L=0.66 H=1.25 2160-0 LOINC GLUCOSE 202 mg/dL L=74 H=106 2345-7 LOINC H SODIUM 137 mmol/L L=132 H=144 2951-2 LOINC POTASSIUM 4.2 mmol/L L=3.5 H=5.1 2823-3 LOINC CHLORIDE 102 mmol/L L=98 H=107 2075-0 LOINC CO2 24.0 mmol/L L=22.0 H=30.0 8-9 LOINC ANION GAP 15 L=10 H=20 17853-9 LOINC OSMOLALITY 291 mOs/kG L=280 H=296 62497-5 LOINC BUN/CREAT 18.9 3097-3 LOINC CALCIUM 9.5 mg/dL L=8.3 H=10.5 12877-1 LOINC AST 24 U/L L=15 H=46 1920-8 LOINC ALT 15 U/L L=9 H=72 1742-6 LOINC ALKALINE PHOS 54 U/L L=38 H=126 6768-6 LOINC TOTAL BILI 0.7 mg/dL L=0.2 H=1.3 1975-2 LOINC ALBUMIN 4.4 G/dL L=3.5 H=5.0 1751-7 LOINC TOTAL PROTEIN 7.7 g/L L=6.3 H=8.2 2885-2 LOINC A/G RATIO 1.3 37045-5 LOINC AGE 63 74440-8 LOINC eGFR NON-AFR 90 ml/min eGFR AFR AMER 109 ml/min LIPASE - Collect Date/Time: 01/24/2024 12:45 [facility] ID: [id number] [address] [place], [place], [phone] LOINC: 3040-3 Test Value Unit Reference Range Code Code System Flag LIPASE 57 U/L L=23 H=300 3040-3 LOINC US GALLBLADDER - Completed: 01/24/2024 13:34 LOINC: EXAM DESCRIPTION: US GALLBLADDER REASON FOR STUDY: Pain. TECHNIQUE: Ultrasound of the gallbladder was performed with grayscale imaging. COMPARISON: None. FINDINGS: The liver is increased in size measuring 21 cm in length. The liver is felt to be normal in echogenicity. There are no echogenic shadowing gallstones. There is a small amount of sludge in the gallbladder. There is no gallbladder wall thickening. There is no pericholecystic fluid. The sonographic Richter's sign is negative. There is no intrahepatic or extrahepatic biliary ductal dilatation. IMPRESSION: Small amount of sludge in the gallbladder. Hepatomegaly. THIS IS AN ELECTRONICALLY VERIFIED FINAL REPORT 01/24/2024 1:32 PM - Electronically signed by German Sellers M.D. SN: Report ID: [id number] Reading Location: [id number] Social History Type Status Start Date End Date Code Code Syst em Smoking History Unknown if ever smoked [address] Sex Male Assessment You had [...] EXPOSURE TO OTHER VIRAL COMMUNICABLE DISEASES active 867445365 SNOMED -CT Allergies and Adverse Reactions Allergy Substance Reaction Severity Start Date Concern Status Co de Code System CLINDAMYCIN Rash (SNOMED-CT: 767482281), Redness (SNOMED-CT: 945845494) Active 2582 RxNorm Plan of Treatment No Data Found Encounters Encounter Diagnosis Start Date Code Code Sys tem Right upper quadrant pain 01/24/2024 SN OMED-CT Personal Care Team Section Performer Name Performer Role Active Date Inactive HERLINDA Bryan PCP - Primary care physician 2021-05-25 2023-08-25 Imaging Narrative Notes
== END 2024-06-20 08:10 | disposition home or self-care (01) ==
LOC: CHSIMG 08:12
PROVIDERS: PCP Family Medicine; Visit Provider Family Medicine
DX: R10.9 Unspecified abdominal pain (principal); I77.1 Stricture of artery
CPT/HCPCS: 74185; A9577; C8902

== ENCOUNTER 2025-04-03 08:20 | Emergency (ER) | payer OTHER, SELFPAY ==
[2025-04-03 08:20] VITALS: BP 163/95; PULSE 80; RESP 20; TEMP 36.8; O2SAT 98
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
[2025-04-03] MEDS: TETANUS,DIPHTHERIA,AC PERTUSSIS ADULT 0.5 ML (ADACEL) IM (08:47)
--- OUTSIDE RECORDS SUMMARY | 2025-04-03 08:47 | XMS_ITS ---
Author Organization Unknown Address [address] [place] [phone] Phone Care Team Providers Care Professor Of French Name Role Phone ALEX WHITNEY B Attending Unavailable LELIA Lacy Primary Unavailable Immunization Immunization Date Status Additional Notes Code Code System Tdap 12/28/2019 Completed 115 CVX Results BUN/CREAT - Collect Date/Demetrio e: 09/08/2023 09:48 [facility] ID: [id number] [address] [place], [place], [phone] LOINC: 3097-3 Test Value Unit Reference Range Code Code System Flag BUN 12 mg/dL L=7 H=20 3094-0 LOINC CREATININE 0.90 mg/dL L=0.66 H=1.25 2160-0 LOINC AGE 63 13747-5 LOINC eGFR NON-AFR 90 ml/min eGFR AFR AMER 109 ml/min CT ABD/PEL W/ CONTRAST - Com pleted: 09/08/2023 11:26 LOINC: 81562-7 EXAM DESCRIPTION: CT CHEST/LUNG W/ CONTRAST; CT [...] Aidee Harrell M.D. TW: MADHAVI Report ID: [id number] Reading Location: [id number] CT CHEST/LUNG W/ CONTRAST - Completed: 09/08/2023 [...] Aidee Harrell M.D. TW: MADHAVI Report ID: [id number] Reading Location: [id number] Social History Type Status Start Date End Date Code Code Syst em Smoking History Unknown if ever smoked [address] Sex Male Assessment You had [...] EXPOSURE TO OTHER VIRAL COMMUNICABLE DISEASES active 035762503 SNOMED -CT Allergies and Adverse Reactions Allergy Substance Reaction Severity Start Date Concern Status Co de Code System CLINDAMYCIN Rash (SNOMED-CT: 453588580), Redness (SNOMED-CT: 560823036) Active 7162 RxNorm Plan of Treatment No Data Found Encounters Encounter Diagnosis Start Date Code Code Sys tem Other specified diseases of intestine 09/08/2023 SNOMED-CT Personal Care Team Section Performer Name Performer Role Active Date Inactive HERLINDA Bryan PCP - Primary care physician 2021-05-25 2023-08-25 Imaging Narrative Notes
--- OUTSIDE RECORDS SUMMARY | 2025-04-03 08:47 | XMS_ITS ---
Author Organization Unknown Address [address] [place] [phone] Phone Care Team Providers Care Solutions Development Analyst Name Role Phone ALBARO Ty Attending Unavailable LELIA Lacy Primary Unavailable Immunization Immunization Date Status Additional Notes Code Code System Tdap 12/28/2019 Completed 115 CVX Results URINALYSIS w/Microscopy/C&S if indicated - Collect Date/Time: 01/24/2024 13:34 [facility] ID: [id number] [place] [address], [id number] LOINC: 74054-9 Test Value Unit Reference Range Code Code System Flag UR SOURCE VOIDED 33044-2 LOINC COLOR YELLOW YELLOW 5778-6 LOINC CLARITY CLEAR CLEAR 22944-3 LOINC SPEC GRAVITY >=1.030 1.000-1.030 5811-5 LOINC A PH 5.5 5.0 - 6.5 5803-2 LOINC LEUK EST NEGATIVE NEGATIVE 5799-2 LOINC NITRATE NEGATIVE NEGATIVE PROTEIN NEGATIVE NEGATIVE 5804-0 LOINC GLUCOSE 1+ NEGATIVE 83649-4 LOINC KETONES NEGATIVE NEGATIVE 15413-0 LOINC UROBILINOGEN 0.2 NEGATIVE 5818-0 LOINC BILIRUBIN NEGATIVE NEGATIVE 45092-9 LOINC BLOOD NEGATIVE NEGATIVE 59056-5 LOINC WBC 0-2 0 - 2 05638-3 LOINC RBC 0-2 0 - 2 47137-3 LOINC EPITHELIAL RARE RARE-FEW 53646-1 LOINC BACTERIA NONE SEEN NONE SEEN 36880-1 LOINC MUCUS FEW NONE SEEN 8247-9 LOINC YEAST NOT PRESENT NOT PRESENT 32359-2 LOINC CASTS NONE SEEN 48150-7 LOINC CRYSTALS NONE SEEN 38012-4 LOINC CULTURE? NO 8251-1 LOINC DIAGNOSIS N/A CBC W/ DIFF - Collect Date/T valente: 01/24/2024 12:45 [facility] ID: [id number] [address] [place], [place], [phone] LOINC: 66091-6 Test Value Unit Reference Range Code Code System Flag WBC 7.9 10^3uL L=4.8 H=10.8 RBC 5.93 10^6uL L=4.60 H=6.20 HEMOGLOBIN 16.5 g/dL L=14.0 H=18.0 718-7 LOINC HEMATOCRIT 49.3 VOL% L=42.0 H=52.0 4544-3 LOINC MCV 83.1 fL L=80.0 H=94.0 MCH 27.8 pg L=27.0 H=32.0 MCHC 33.5 g/dL L=32.0 H=36.0 PLATELETS 201 10^3uL L=100 H=400 49372-7 LOINC RDW 13.4 % L=11.7 H=15.5 %GRAN 64.8 % L=40.0 H=70.0 74438-9 LOINC %LYMPH 21.4 % L=20.0 H=45.0 736-9 LOINC %MONO 8.6 % L=2.0 H=10.0 27090-4 LOINC %EOS 3.8 % L=0.0 H=6.0 713-8 LOINC %BASO 1.1 % L=0.0 H=3.0 706-2 LOINC #NEUT 5.1 10^3uL L=1.9 H=7.6 01125-8 LOINC #LYMPH 1.7 10^3uL L=0.9 H=4.9 80154-2 LOINC #MONO 0.7 10^3uL L=0.1 H=0.9 48596-5 LOINC #EOS 0.3 10^3uL L=0.0 H=0.6 712-0 LOINC #BASO 0.09 10^3uL L=0.00 H=0.10 11797-7 LOINC #IM GRANS 0.0 10^3uL L=0.0 H=7.0 72578-6 LOINC %IM GRANS 0.3 % L=0.0 H=5.0 26567-4 LOINC %NRB 0.0 L=0.0 H=0.2 22258-2 LOINC #NRB 0.000 L=0.000 H=0.012 48296-3 LOINC MANUAL DIFF NOT INDICATED RBC MORPH NOT INDICATED COMPREHENSIVE METABOLIC PANE L - Collect Date/Time: 01/24/2024 12:45 [facility] ID: [id number] [address] [place], [place], [id number] LOINC: 25828-3 Test Value Unit Reference Range Code Code System Flag FASTING UNKNOWN BUN 17 mg/dL L=7 H=20 3094-0 LOINC CREATININE 0.90 mg/dL L=0.66 H=1.25 2160-0 LOINC GLUCOSE 202 mg/dL L=74 H=106 2345-7 LOINC H SODIUM 137 mmol/L L=132 H=144 2951-2 LOINC POTASSIUM 4.2 mmol/L L=3.5 H=5.1 2823-3 LOINC CHLORIDE 102 mmol/L L=98 H=107 2075-0 LOINC CO2 24.0 mmol/L L=22.0 H=30.0 2028-9 LOINC ANION GAP 15 L=10 H=20 80706-9 LOINC OSMOLALITY 291 mOs/kG L=280 H=296 69589-4 LOINC BUN/CREAT 18.9 3097-3 LOINC CALCIUM 9.5 mg/dL L=8.3 H=10.5 04638-5 LOINC AST 24 U/L L=15 H=46 1920-8 LOINC ALT 15 U/L L=9 H=72 1742-6 LOINC ALKALINE PHOS 54 U/L L=38 H=126 6768-6 LOINC TOTAL BILI 0.7 mg/dL L=0.2 H=1.3 1975-2 LOINC ALBUMIN 4.4 G/dL L=3.5 H=5.0 1751-7 LOINC TOTAL PROTEIN 7.7 g/L L=6.3 H=8.2 2885-2 LOINC A/G RATIO 1.3 13520-2 LOINC AGE 63 05993-1 LOINC eGFR NON-AFR 90 ml/min eGFR AFR AMER 109 ml/min LIPASE - Collect Date/Time: 01/24/2024 12:45 [facility] ID: [id number] [address] [place], [place], [phone] LOINC: 3040-3 Test Value Unit Reference Range [...] Electronically signed by German Sellers M.D. SN: SN Report ID: [id number] Reading Location: [id number] Social History Type Status Start Date End Date Code Code Syst em Smoking History Unknown if ever smoked [address] Sex Male Assessment You had [...] EXPOSURE TO OTHER VIRAL COMMUNICABLE DISEASES active 743510624 SNOMED -CT Allergies and Adverse Reactions Allergy Substance Reaction Severity Start Date Concern Status Co de Code System CLINDAMYCIN Rash (SNOMED-CT: 263650832), Redness (SNOMED-CT: 545465725) Active 2582 RxNorm Plan of Treatment No Data Found Encounters Encounter Diagnosis Start Date Code Code Sys tem Right upper quadrant pain 01/24/2024 SN OMED-CT Personal Care Team Section Performer Name Performer Role Active Date Inactive HERLINDA Bryan PCP - Primary care physician 2021-05-25 2023-08-25 Imaging Narrative Notes
--- OUTSIDE RECORDS SUMMARY | 2025-04-03 08:47 | XMS_ITS | Clinical Summary ---
Author Organization [facility] Address [address] [place] [address] Care Team Providers Care Solar Energy System Installer Name Role Phone Naet Trujillo MD Primary Care Provider [phone] [facility],non-owned Affiliates and Associated Physician Practices is amultiple site organization consisting of ambulatory clinics and hospital sitesin [place], [place], [place] and [place]. This disclosure is being madepursuant to the Care Everywhere program and may not contain all information available regarding this patient. Last updated 18.[facility] Allergies Active Allergy Reactions Criticality Noted Date Comments Clindamycin Itching,Rash Medium 04/30/2024 Gabapentin Rash,Itching Medium 11/05/2024 Medications * Be aware that medications may not be up to date on this document. Alwaysverify current medications with the patient. Blood Glucose Monitoring Suppl (ONE TOUCH ULTRA 2) w/Device KIT 4 Active Docusate Sodium (DSS) 100 MG Take 1 capsule by mouth once daily Active glimepiride (Amaryl) 2 MG tablet Take 1 (one) tablet by mouth daily with breakfast Active OneTouch Ultra test strip 1 (one) strip as directed 4 Active Lancets (ONETOUCH DELICA PLUS 33G EXTRA FINE LANCET) 4 Active HYDROcodone-ester taminophen (Thermal) 5-325 MG tablet Take 1 (one) tablet by mouth 3 times daily as needed for Pain 5 Active pregabalin (Lyrica) 150 MG capsule Take 1 (one) capsule by mouth 2 times daily 5 Active triamcinolone acetonide (Kenalog) 0.1 % cream Apply to affected area as needed for Itching Active amLODIPine (Norvasc) 5 MG tablet Take 1 (one) tablet by mouth once daily Active amitriptyline (Elavil) 10 MG tabletIndicatio ns:Neuropathic Pain Take 1 (one) tablet by mouth at bedtime Reasons: Neuropathic Pain 90 tablet 2 Active Active Problems Problem Noted Date Diagnosed Date Diabetic peripheral neuropathy 07/10/2024 Neuropathic pain 07/10/2024 Acute pancreatitis, unspecif ied complication status, unspecified pancreatitis type 05/01/2024 Abdominal discomfort 03/15/2024 Right upper quadrant pain 03/12/2024 Pain 02/29/2024 Acute abdominal pain 02/28/2024 Biliary dyskinesia 02/02/2024 Malignant tumor of sigmoid colon 09/15/2023 Essential hypertension 09/12/2023 Gout 09/12/2023 Type 2 diabetes mellitus 09/12/2023 COVID-19 03/23/2020 Social History Tobacco Use Types Packs/Day Years Used Date Smoking Tobacco: Former Cigarettes Smokeless Tobacco: Never Tobacco Cessation:Counseling Given: Not Answered Comments:Quit smoking in 1999 Alcohol Use Standard Drinks/Week Comments Not Currently 0 (1 standard drink = 0.6 oz pur e alcohol) beer once a month Sex and Gender Information Value Date Recorded Sex Assigned at Not on file Legal Sex Male 1:19 PM [employer]ILERHOU[employer] Gender Identity Not on file Sexual Orientation Not on file Last Filed Vital Signs Vital Sign Reading Time Taken Comments Blood Pressure 177/89 11/05/2024 9:29 AM CDT Pulse 56 11/05/2024 9:29 AM CDT Temperature 36.6 C (97.8 F) 11/05/2024 9:14 AM CDT Respiratory Rate 16 05/02/2024 10:5 3 AM [employer] Oxygen Saturation 99% 11/05/2024 9:14 AM CDT Inhaled Oxygen Concentration - - Weight 105.8 kg (233 lb 3.2 oz) 11/05/2024 9:14 AM CDT Height 185.4 cm (6' 1) 11/05/2024 9:14 AM CDT Body Mass Index 30.77 11/05/2024 9:14 AM CDT Plan of Treatment Upcoming Encounters Date Type Department Care Team (Late st Contact Info) Description 05/13/2025 10:00 AM [employer]CH[employer] Office Visit [facility] [address], [facility] [place] [address] Ирина Diaz MD [address] [place] [address] Health Maintenance Due Date Last Done Comments COLOGUARD (AGES 45-75) - COL ON CA SCREENING 1958 COLON MONITORING 1958 COLONOSCOPY - COLON CA SCREENING 1958 CT COLONOGRAPHY - COLON CA SCREENING 1958 Colorectal Cancer Screening 1958 FIT - COLON CA SCREENING 1958 FLEX SIG - COLON CA SCREENING 1958 HEPATITIS C SCREENING 05/10/1976 DTAP/TDAP/TD VACCINES (1 - Tdap) 1977 PNEUMOCOCCAL VACCINE 50+ (1 of 2 - PCV) 1977 Respiratory Syncytial Virus (RSV) Vaccine Pt: or over 60 yrs (1 - Risk 50-74 years 1-dose series) 2008 ZOSTER VACCINE (1 of 2) 2008 AAA SCREENING 2023 DEPRESSION SCREENING 2024 DIABETES - URINE PROTEIN SCREENING 2024 DIABETES RETINOPATHY SCREENING 11/05/2024 DIABETES-FOOT EXAM WITH MONOFILAMENT 11/05/2024 DIABETES-HGB A1C 11/05/2024 05/01/2024 COVID-19 VACCINE (1 - 2024-2 6 season) 2025 INFLUENZA VACCINE (#1) 2025 03/27/2020 DIABETES-SERUM CREATININE 05/02/20252023, 05/01/2024 HEPATITIS B VACCINE Aged Out No longe r eligible based on patient's age to complete this topic HIB VACCINE Aged Out No longer eligi ble based on patient's age to complete this topic HPV VACCINE Aged Out No longer eligi ble based on patient's age to complete this topic MENINGOCOCCAL (Group B) VACCINE SHARED DECISION-MAKING Aged Out No longer eligible based on patient's age to complete this topic MENINGOCOCCAL GROUPS A/C/Y/W VACCINE Aged Out No longer eligible b ased on patient's age to complete this topic Goals Goal Patient Goal Type Associated Problems Recent Progress Patient-Stated? Author Medication Management General On track( 025 9:24 AM CDT) Joaquin Garcia, JOLYNN Note: Expected end date: ongoing Interventions: Take all medications as prescribed Let your doctor know right away about any changes in your medications Make sure to request a refill of your medication at least one week prior to your last dose Procedures Procedure Name Priority Date/Time Associated Diagnosis Comments COMPREHENSIVE METABOLIC PANEL Routine 05/02/2024 4:26 AM [facility] Chronic pancreatitis, unspecified pancreatitis type HEMOGLOBIN A1C Routine 05/01/2024 8:41 PM [employer] Type 2 diabetes mellitus without complication, without long-term current use of insulin from Last 3 Months or Most Recently Relevant to Health Maintenance Results * (ABNORMAL) COMPREHENSIVE METABOLIC PANEL (05/02/2024 4:26 AM [facility]) BUN 10 7 - 26 mg/dL 05/02/2024 5:34 AM [facility] Creatinine 0.80 0.71 - 1.16 mg/dL 05/02/2024 5:34 AM [facility] Sodium 134(L) 136 - 145 mmol/L 05/02/2024 5:34 AM [facility] Potassium 3.7 3.5 - 4.5 mmol/L 05/02/2024 5:34 AM [facility] Chloride 108(H) 98 - 107 mmol/L 05/02/2024 5:34 AM [facility] CO2 23 22 - 29 mmol/L 05/02/2024 5:34 AM [facility] Glucose 125(H) 70 - 99 mg/dL 05/02/2024 5:34 AM [facility] Calcium 9.2 8.4 - 10.2 mg/dL 05/02/2024 5:34 AM [facility] Protein Total 6.4 6.0 - 8.3 g/dL 05/02/2024 5:34 AM [facility] Albumin 3.6 3.4 - 5.0 g/dL 05/02/2024 5:34 AM [facility] Bilirubin Total 0.9 0.2 - 1.2 mg/dL 05/02/2024 5:34 AM [facility] Alkaline Phosphatase 83 40 - 150 U/L 05/02/2024 5:34 AM [facility] ALT 34 5 - 55 U/L 05/02/2024 5:34 AM [facility] AST 34 5 - 34 U/L 05/02/2024 5:34 AM [facility] Anion Gap 3(L) 6 - 16 05/02/2024 5:34 AM [facility] BUN/Creatinine Ratio 13 7 - 23 05/02/2024 5:34 AM [facility] Osmolality Calculated 279 275 - 295 mOsm/kg 05/02/2024 5:34 AM [facility] Albumin/Globulin Ratio 1.3 1.1 - 2.3 05/02/2024 5:34 AM [facility] eGFR by CKD-EPI >90 >=90 mL/min/1.7 3 m2 05/02/2024 5:34 AM [facility] Blood BLOOD SPECIMEN / Unknown Lab Venipuncture / Unknown 05/02/2024 4:26 AM [employer] 05/02/2024 5:05 AM [facility] Chapincito Cummings MD LAB - CHEMISTRY ORDERABLES Final Result [facility] [address] [place] [address], [facility] [phone] * (ABNORMAL) HEMOGLOBIN A1C (05/01/2024 8:41 PM [facility]) Hemoglobin A1c 6.6(H) <=5.6 % 05/02/2024 8:24 AM [facility] Estimated Average Glucose 143 mg/dL 05/02/2024 8:24 AM [facility] Comment: HbA1c Interpretation: Normal : < 5.7% Pre-diabetes: 5.7-6.4% Diabetes: Equal to or greater than 6.5% Test results diagnostic of diabetes should be repeated for confirmation. Treatment target values recommended by ADA and other clinical organizations should be used to evaluate metabolic control in patients. Reference: [place] [employer], Standards of Care in Diabetes -2020 In patients 70 years and older consider HbA1c target range of 7.0-7.5% (Reference: Eusebio José et al. JAMDA. 2012) The Sebia assay for the measurement of HbA1c is a National Glycohemoglobin Standardization Program (NGSP) certified method. Blood BLOOD SPECIMEN / Unknown Lab Venipuncture / Unknown 05/01/2024 8:41 PM [employer] 05/01/2024 8:46 PM [employer] us Chapincito Cummings MD LAB - CHEMISTRY ORDERABLES Final Result [facility] [address] [place] [address], [facility] [phone] from Last 3 Months or Most Recently Relevant to Health Maintenance Insurance [facility] MEDICARE MANAGED CARE PLAN GENERIC MEDICARE ADV Advance Directives * Full Code (Latest Code Status on File) Date Activated Date Inactivated Comments 05/01/2024 7:47 PM 05/02/2024 4:50 PM Care Teams Solar Energy System Installer Relationship Specialty Start Date End Date Nate Trujillo MD [address] [place] [phone] PCP - General Family Medicine 04/30/24
[2025-04-03] MEDS: NEOMYCIN/POLYMYXIN/BACITRACIN OINTMENT PACKET 2 PACKET TOPICAL (08:49)
[2025-04-03 09:13] VITALS: BP 153/70; PULSE 78; RESP 20; TEMP 36.8; O2SAT 98
== END 2025-04-03 09:13 | disposition home or self-care (01) ==
LOC: CHSED 08:40
PROVIDERS: Emergency Provider Emergency Medicine; PCP Family Medicine
DX: T25.232A Burn of second degree of left toe(s) (nail), initial encounter (principal); T25.231A Burn of second degree of right toe(s) (nail), initial encounter; T31.0 Burns involving less than 10% of body surface; E11.9 Type 2 diabetes mellitus without complications; X08.8XXA Exposure to other specified smoke, fire and flames, initial encounter; Z23 Encounter for immunization
CPT/HCPCS: 90471; 90715; 99283